=== PATIENT | female | born 1935 | race Caucasian/White ===

== ENCOUNTER 2016-09-29 16:05 | Inpatient (IN) | payer OTHER, MEDICARE ==
[~2016-09-29] VITALS: Ht 162.6 cm; Wt 63.5 kg
[~2016-09-29 16:05] MED LIST: ADVAIR DISKUS 21 DSK INH; ASPIRIN81 M1 PO; ATIVAN0.5 MG PO; HYDROXYCHLOROQ200 MG PO; MOBIC15 MG PO; NEURONTIN300 MG PO; NORCO 325 MG-51 TAB PO; NORFLEX100 MG PO; OMEPRAZOLE D/R20 MG PO; PREDNISONE5 MG PO
--- NOTE | 2016-09-29 16:11 | ED AMS/SEIZURE/WEAK/DIZZY ---
History of Present Illness General Chief Complaint: General Adult Stated Complaint: BIBA, GENERAL WEAKNESS Vital Signs & Intake/Output Vital Signs & Intake/Output Vital Signs Date Time Temp Pulse Resp B/P Pulse O2 O2 Flow FiO2 Ox Delivery Rate 09/29 1607 99.0 80 19 148/70 94 Room Air Allergies Coded Allergies: NO KNOWN ALLERGIES (05/20/15) Reconcile Medications Acetaminophen/Hydrocodone Bi (Coleridge 325 MG-5 MG) 1 TAB TAB 1 TAB PO Q6P PRN NECK PAIN Aspirin 81 MG CTB 1 TAB PO DAILY HEART HEALTH (Reported) FLUTICASONE/SALMETEROL (Advair 250-50 Diskus) 1 DSK DSK 1 PUFF INH BID BREATHING PROBLEMS (Reported) Gabapentin (Neurontin) 300 MG CAP 1 CAP PO PRN PAIN (Reported) Hydroxychloroquine Sulfate 200 MG TAB 1 TAB PO BID UNKNOWN (Reported) Lorazepam (Ativan) 0.5 MG TAB 1 TAB PO BID ANXIETY (Reported) Meloxicam (Mobic) 15 MG TAB 1 TAB PO DAILY PRN NECK PAIN Omeprazole 20 MG ECC 1 CAP PO DAILY GI (Reported) Orphenadrine Citrate (Norflex) [address] 1 TAB PO BID PRN NECK SPASMS Prednisone 5 MG TAB 2 TAB PO DAILY STEROID (Reported) Past History Travel History Traveled to [place] past 21 day No Medical History Respiratory: asthma Gastrointestinal: diverticulitis, GERD Musculoskeletal: osteoarthritis, rheumatoid arthritis Psychiatric: anxiety, depression Cancer(s): SKIN CANCER History of MRSA: No History of VRE: No History of CDIFF: Yes Surgical History Surgical History: appendectomy, knee replacement Psychosocial History Who do you live with Patient/Self Services at Home None What is your primary language Thai Progress Plan of Care: Orders Procedure Date/time Status LACTIC ACID 09/29 1928 Active LACTIC ACID 09/29 1628 Active XRY-ANKLE 3 OR MORE VIEWS R 09/29 1616 Active Add-on Test (ER Only) 09/29 1616 Active XRY-CHEST XRAY, PA AND LATERAL 09/29 1610 Active Saline Lock 09/29 1610 Active Telemetry/Features Reporter 09/29 161 Active RAPID VIRAL INFLUENZA A 09/29 1610 Active BLOOD CULTURE 09/29 1610 Active URIC ACID 09/29 1610 Active URINALYSIS 09/29 1610 Active TROPONIN LEVEL 09/29 1610 Active WESTERGREN SED RATE 09/29 1610 Active COMPREHENSIVE METABOLIC PANEL 09/29 1609 Active CBC WITHOUT DIFFERENTIAL 09/29 1609 Active EKG 09/29 161 Active Microbiology 09/29 161 NASOPHARYN: Influenza Virus A & B Rapid Smear - ORD 09/29 1609 BLOOD: Blood Culture - ORD 09/29 1609 BLOOD: Blood Culture - ORD Departure Departure Condition: Stable Referrals: ROSE MCKEON,LEIGHTON Brooks (PCP/Family) Departure Forms: Customer Survey General Discharge Information
--- NOTE | 2016-09-29 16:21 | ED AMS/SEIZURE/WEAK/DIZZY ---
History of Present Illness General Chief Complaint: General Adult Stated Complaint: BIBA, GENERAL WEAKNESS Source: patient, family Exam Limitations: no limitations Vital Signs & Intake/Output Vital Signs & Intake/Output Vital Signs Date Time Temp Pulse Resp B/P Pulse O2 O2 Flow FiO2 Ox Delivery Rate 09/30 2111 94 Room Air 09/29 2048 98.7 72 18 134/68 93 09/29 1742 98.7 64 18 131/67 100 Room Air 09/29 1648 95 Room Air 09/29 1607 99.0 80 19 148/70 94 Room Air Allergies Coded Allergies: lactase (LACTOSE INTOLERANT 09/29/16) Reconcile Medications Albuterol Sulfate (Proair Hfa) 90 MCG HFA.AER.AD 2 PUF INH PRN ASTHMA ( Reported) Benzonatate 100 MG CAPSULE 1 CAP PO TID PRN COUGH (Reported) Bifidobacterium Infantis (Align) (Unknown Strength) TAB.CHEW 1 TAB PO DAILY SUPPLEMENT (Reported) Cholecalciferol (Vitamin D3) (Vitamin D) (Unknown Strength) TABLET (Unknown Dose) PO DAILY SUPPLEMENT (Reported) Codeine Phosphate/Guaifenesi (Cheratussin AC Syrup) 10 MG-100 MG/5 ML LIQUID 5 ML PO QHS COUGH (Reported) Diclofenac Epolamine (Flector) 1.3 % PATCH.TD12 1 PAT TOP BID PRN PAIN ( Reported) Fluticasone/Salmeterol (Advair 250-50 Diskus) 250 MCG-50 MCG/DOSE BLST.W.DEV 1 PUF INH BID ASTHMA (Reported) Folic Acid 1 MG TABLET 1 TAB PO DAILY SUPPLEMENT (Reported) Gabapentin 300 MG CAPSULE 1 CAP PO PRN NERVE PAIN (Reported) Lorazepam (Ativan) 0.5 MG TABLET 1 TAB PO QAM ANXIETY (Reported) Magnesium Oxide (Magnesium) 400 MG TABLET 1 TAB PO PRN SUPPLEMENT (Reported) Methotrexate 2.5 MG TABLET 6 TAB PO QTHURS RA (Reported) Multivit-Min/FA/Lycopen/Lutein (Centrum Silver Tablet) 0.4 MG-300 MCG-250 MCG TABLET 1 TAB PO DAILY SUPPLEMENT (Reported) Prednisone 5 MG TABLET 1 TAB PO QAM RA (Reported) Ranitidine (Ranitidine HCl) 150 MG TABLET 1 TAB PO BID GI (Reported) Triage Nurses Notes Reviewed? yes HPI: 80-year-old female arrived by ambulance to room 5 for evaluation of general weakness that has been getting worse over the past few weeks. She was seen by her primary care provider and was given a Z-Tony for possible bronchitis. She reports she continues with a cough and congestion along with the general weakness. She has chills but no documented fever. She denies chest pain, abdominal pain, lightheadedness, dizziness, or palpitations. He reports that over the past few days she has been complaining of right ankle pain that has been getting worse along with swelling and redness. She has a history of gout and spoke to Dr. Knight who recommended her to come to the emergency department for evaluation. This morning she fell due to the weakness in the ankle pain. She reports she fell onto her right side but did not hit hard. She did hit her head but against a plastic cabinet. She denies any LOC and remembers the event. She denies no change in her chronic arthritic pain that she has. She has a history of RA and gout. She is unable to ambulate at home and she lives alone which is an issue for her. (COMFORT GARCIA APRN) Past History Travel History Traveled to [place] past 21 day No Medical History Any Pertinent Medical History? see below for history Respiratory: asthma Gastrointestinal: diverticulitis, GERD Musculoskeletal: osteoarthritis, rheumatoid arthritis Psychiatric: anxiety, depression Cancer(s): SKIN CANCER History of MRSA: No History of VRE: No History of CDIFF: Yes Surgical History Surgical History: appendectomy, knee replacement Psychosocial History Who do you live with Patient/Self Services at Home None What is your primary language [place] Citizen Tobacco Use: Never used ETOH Use: denies use Illicit Drug Use: denies illicit drug use Family History Hx Contributory? No (COMFORT GARCIA APRN) Review of Systems Review of Systems Constitutional: Reports: chills, weakness. EENTM: Reports: no symptoms. Respiratory: Reports: cough. Cardiovascular: Reports: no symptoms. GI: Reports: no symptoms. Genitourinary: Reports: no symptoms. Musculoskeletal: Reports: see HPI, joint pain. Skin: Reports: no symptoms. Neurological/Psychological: Reports: no symptoms. Hematologic/Endocrine: Reports: no symptoms. Immunologic/Allergic: Reports: no symptoms. (COMFORT GARCIA APRN) Physical Exam Physical Exam General Appearance: alert, awake, mild distress Head: atraumatic, normal appearance Eyes: Bilateral: normal appearance, PERRL, EOMI. Ears, Nose, Throat: normal pharynx, normal ENT inspection Neck: normal inspection, supple, full range of motion Respiratory: normal breath sounds, chest non-tender, no respiratory distress Cardiovascular: regular rate/rhythm Peripheral Pulses: 2+ radial (R), 2+ radial (L) Gastrointestinal: normal bowel sounds, soft, non-tender Back: normal inspection, normal range of motion Extremities: right ankle pain, erythema and edema Neurologic/Psych: no motor/sensory deficits, awake, alert, oriented x 3, normal mood/affect Skin: intact, normal color, warm/dry Comments: Unable to use a walker here in the emergency department. She is nonweightbearing on her right ankle. She had to transfer from bed to commode. Core Measures ACS in differential dx? No CVA/TIA Diagnosis: No Severe Sepsis Present: No Septic Shock Present: No (COMFORT GARCIA APRN) Progress Differential Diagnosis: anemia, dehydration, electrolyte imbalance, pneumonia, sepsis, septic arthritis, gout Plan of Care: Orders Procedure Date/time Status Regular Diet 09/30 B Active Code Status 09/29 2116 Active TRC EVALUATION (GEN) 09/30 2051 Active OXYGEN SETUP (GEN) 09/30 2051 Active Pathway - chart 09/30 2051 Active House Staff 09/30 2051 Active Patient Data 09/30 2051 Active Patient Data 09/29 2042 Active OXYGEN SETUP (GEN) 09/29 2024 Active Saline Lock 09/29 2024 Active Admit to inpatient 09/29 2024 Active Vital Signs 09/29 2024 Active Activity/Ambulation 09/29 2024 Active Code Status 09/29 2024 Complete LACTIC ACID 09/29 1628 Complete Add-on Test (ER Only) 09/29 161 Active Saline Lock 09/29 1610 Active Telemetry/Landmen 09/29 1610 Active RAPID VIRAL INFLUENZA A 09/29 1610 Complete BLOOD CULTURE 09/29 1610 Active URIC ACID 09/29 1610 Complete URINALYSIS 09/29 1610 Complete TROPONIN LEVEL 09/29 1610 Complete WESTERGREN SED RATE 09/29 1610 Complete COMPREHENSIVE METABOLIC PANEL 09/29 1610 Complete CBC WITHOUT DIFFERENTIAL 09/29 1610 Complete EKG 09/29 1610 Active VTE Mechanical Prophylaxis 09/29 UNK Active Vital Signs 09/29 UNK Active MISTAKE 09/29 UNK Active Intake & Output 09/29 UNK Active Current Medications Sig/Magnus Start time Last Medication Dose Stop Time Status Admin Folic Acid 1 MG DAILY 09/30 1000 UNVr (Folic Acid) Lorazepam 0.5 MG QAM 09/30 1000 UNVr (Ativan) 10/07 0959 Prednisone 5 MG DAILY 09/30 1000 UNVr Famotidine 20 MG BID 09/29 2199 UNVr (Pepcid) Gabapentin 300 MG DAILY PRN 09/29 2129 UNVr (Neurontin) Laboratory Tests 09/29/16 1928: Lactic Acid Cancelled 09/29/16 1859: Urine Color YEL, Urine Clarity CLEAR, Urine pH 6.0, Ur Specific Mize 1.015, Urine Protein NEG, Urine Ketones NEG, Urine Nitrite NEG, Urine Bilirubin NEG, Urine Urobilinogen 0.2, Ur Leukocyte Esterase NEG, Ur Microscopic EXAM NOT REQUIRED, Urine Hemoglobin NEG, Urine Glucose NEG 09/29/16 163: Lactic Acid 0.9 09/29/16 163: Anion Gap 13, Estimated GFR > 60, BUN/Creatinine Ratio 16.7, Glucose 115 H, Uric Acid 4.5, Calcium 10.1, Total Bilirubin 0.7, AST 27, ALT 37, Alkaline Phosphatase 71, Troponin I < 0.01, Total Protein 7.0, Albumin 4.0, Globulin 3.0, Albumin/Globulin Ratio 1.3, CBC w Diff NO MAN DIFF REQ, RBC 4.26, MCV 92.8, MCH 31.1 H, RDW 15.4 H, MPV 9.4, Gran % 85.8 H, Lymphocytes % 4.8 L, Monocytes % 9.0, Eosinophils % 0.4, Basophils % 0 L, Absolute Granulocytes 12.1 H, Absolute Lymphocytes 0.7 L, Absolute Monocytes 1.3 H, Absolute Eosinophils 0.1 , Absolute Basophils 0, PUBS MCHC 33.5, ESR Westergren 43 H Microbiology 09/29 1629 NASOPHARYN: Influenza Virus A & B Rapid Smear - COMP 09/29 1629 BLOOD: Blood Culture - RECD 09/29 1629 BLOOD: Blood Culture - RECD Diagnostic Imaging: Viewed by Me: Radiology Read. Discussed w/RAD: Radiology Read. CXR Impression: no acute abnormality, no infiltrates, normal size heart, normal mediastinum Initial ED EKG: NSR Prior EKG: unchanged Comments: PATIENT: SRINIVASAN WAYNE PRESENT AGE: 80 PATIENT ACCOUNT NO: [id number] : 35 LOCATION: [facility] [place] ORDERING PHYSICIAN: COMFORT GARCIA APRN SERVICE DATE: 09/29/16 EXAM TYPE: RAD - XRY-ANKLE 3 OR MORE VIEWS R; XRY-CHEST XRAY, PA AND LATERAL EXAMINATION: XR ANKLE, RIGHT XR CHEST CLINICAL INFORMATION: Weakness, cough. History of fall, complaining of right ankle pain. History of gout. COMPARISON: None TECHNIQUE: AP, lateral, and mortise views of the right ankle. 2 views of the chest. FINDINGS: RIGHT ANKLE: Significant periarticular soft tissue swelling is present. Moderate diffuse osteopenia is noted involving all the visualized bones. The bony alignment is intact. The cortices are intact. Incidental note is made of moderate degenerative osteoarthrosis at the intertarsal joints seen best on the lateral projection along the dorsal surface. Small posterior plantar calcaneal spur is noted. Os trigonum is seen. Soft tissue calcification is noted along the plantar surface underneath the calcaneus. CHEST: Both lung hall are symmetrically expanded and appear clear. The cardiomediastinal silhouette is within normal limits. There is no pleural effusion present. Cervical spine fusion is noted. Increased midthoracic kyphosis, mild multilevel degenerative spondylosis-related changes are noted. IMPRESSION: 1. Moderate diffuse osteopenia, and significant periarticular soft tissue swelling at the right ankle. 2. No radiographic evidence of any acute fracture and/or dislocation is present. 3. No acute cardiopulmonary disease. DICTATED BY: BRYAN MCKENNA MD DATE/TIME DICTATED:09/29/161735 AUTO PHONE INSTALLER:BINH DATE/TIME TRANSCRIBED:09/29/161735 CONFIDENTIAL, DO NOT COPY WITHOUT APPROPRIATE AUTHORIZATION. <Electronically signed in Other Vendor System> SIGNED BY: BRYAN MCKENNA MD 09/29/16 1747 8:02 PM patient continues with pain despite Tylenol use. Morphine will be given. I spoke with Dr. Mott over the telephone and this is less likely septic arthritis. Have a call out to Dr. Knight for additional information. More likely gout. 8:30 PM I spoke to Dr. Knight and we will admit her to general medicine under the hospitalist service and he will consult in the morning. If there is a need for a full orthopedic consultation he will advised tomorrow. I explained to him that the patient is nonweightbearing and unable to walk with a walker. Tried again to get out of bed but she is in severe pain. Dr. Knight advised to give her prednisone 10 mg times one now and 5 mg twice a day starting tomorrow. (COMFORT GARCIA APRN) Departure Departure Time of Disposition: 2025 Disposition: STILL A PATIENT Condition: Stable Clinical Impression Primary Impression: Gout attack Qualifiers: Gout site: ankle Gout etiology: unspecified cause Laterality: right Qualified Code: M10.9 - Gout, unspecified Referrals: ROSE MCKEON,LEIGHTON Brooks (PCP/Family) Departure Forms: Customer Survey General Discharge Information Admission Note Spoke With: PAN BARRAZA MD Documentation of Exam: Documentation of any treatments & extenuating circumstances including Concerns Regarding Discharge (functional status, medication knowledge or non-compliance, living conditions, etc.) that warrant an admission rather than observation: She will need full admission to general medicine for pain management, physical therapy consultation, case management consultation, rheumatology consultation, and orthopedic consultation. She will need steroids and pain medication. She is unable to bear weight in the emergency department please see nursing notes and my previous note. (COMFORT GARCIA APRN) PA/[employer] SALES REPRESENTATIVE Co-Sign Statement Statement: ED Attending supervision documentation- x I saw and evaluated the patient. I have also reviewed all the pertinent lab results and diagnostic results. I agree with the findings and the plan of care as documented in the PA's/[employer] SALES REPRESENTATIVE's documentation. [] I have reviewed the ED Record and agree with the PA's/[employer] SALES REPRESENTATIVE's documentation. [] Additions or exceptions (if any) to the PAs/[employer] SALES REPRESENTATIVE's note and plan are summarized below: [] (ANITA SEPULVEDA,SUSY)
[2016-09-29 16:56] LABS: ABSOLUTE BASOPHIL COUNT 0 /CUMM (0.0-0.2); ABSOLUTE EOSINOPHIL COUNT 0.1 /CUMM (0.0-0.7); ABSOLUTE GRANULOCYTE CT 12.1 /CUMM (1.4-6.5); ABSOLUTE LYMPH COUNT 0.7 /CUMM (1.2-3.4); ABSOLUTE MONOCYTE COUNT 1.3 /CUMM (0.10-0.60); BASOPHIL % 0 % (0.0-2.0); EOSINOPHIL % 0.4 % (0-5); HEMATOCRIT 39.5 % (37-47); MEAN CORPUSCULAR HGB 31.1 PG (27.0-31.0); MEAN CORPUSCULAR HGB CONC 33.5 G/DL (33.0-37.0); MEAN CORPUSCULAR VOLUME 92.8 FL (81.0-99.0); MEAN PLATELET VOLUME 9.4 FL (7.4-10.4); PLATELET COUNT 297 /CUMM (130-400); RBC DISTRIBUTION WIDTH 15.4 % (11.5-14.5); RED BLOOD CELL CT 4.26 /CUMM (4.20-5.40); WHITE BLOOD CELL COUNT 14.1 /CUMM (4.8-10.8)
[2016-09-29] MEDS ORDERED: FLECTOR1 EACH TOP (17:00)
[2016-09-29] MEDS ORDERED: PREDNISONE5 M1 PO (17:00)
[2016-09-29] MEDS ORDERED: CHERATUSSIN AC118 M1 PO (17:00)
[2016-09-29] MEDS ORDERED: RANITIDINE HCL150 MG PO (17:00)
[2016-09-29] MEDS ORDERED: ALIGN10.5 MG PO (17:01)
[2016-09-29] MEDS ORDERED: CENTRUM SILVER1 EAC3 PO (17:01)
[2016-09-29] MEDS ORDERED: VITAMIN D2000 UNI1 PO (17:01)
[2016-09-29] MEDS ORDERED: PROAIR HFA8.5 GM INH (17:02)
[2016-09-29] MEDS ORDERED: ADVAIR 250-501 EACH INH (17:02)
[2016-09-29] MEDS ORDERED: ATIVAN0.5 M1 PO (17:02)
[2016-09-29] MEDS ORDERED: FOLIC ACID1 M1 PO (17:03)
[2016-09-29] MEDS ORDERED: METHOTREXATE2.5 M2 PO (17:03)
[2016-09-29] MEDS ORDERED: GABAPENTIN300 M2 PO (17:04)
[2016-09-29] MEDS ORDERED: MAGNESIUM400 MG PO (17:04)
[2016-09-29] MEDS ORDERED: BENZONATATE100 M1 PO (17:05)
[2016-09-29 17:10] LABS: GRANULOCYTE % 85.8 % (42.2-75.2)
--- NOTE | 2016-09-29 17:47 | RADIOLOGY REPORT ---
EXAMINATION: XR ANKLE, RIGHT XR CHEST CLINICAL INFORMATION: Weakness, cough. History of fall, complaining of right ankle pain. History of gout. COMPARISON: None TECHNIQUE: AP, lateral, and mortise views of the right ankle. 2 views of the chest. FINDINGS: RIGHT ANKLE: Significant periarticular soft tissue swelling is present. Moderate diffuse osteopenia is noted involving all the visualized bones. The bony alignment is intact. The cortices are intact. Incidental note is made of moderate degenerative osteoarthrosis at the intertarsal joints seen best on the lateral projection along the dorsal surface. Small posterior plantar calcaneal spur is noted. Os trigonum is seen. Soft tissue calcification is noted along the plantar surface underneath the calcaneus. CHEST: Both lung hall are symmetrically expanded and appear clear. The cardiomediastinal silhouette is within normal limits. There is no pleural effusion present. Cervical spine fusion is noted. Increased midthoracic kyphosis, mild multilevel degenerative spondylosis-related changes are noted. IMPRESSION: 1. Moderate diffuse osteopenia, and significant periarticular soft tissue swelling at the right ankle. 2. No radiographic evidence of any acute fracture and/or dislocation is present. 3. No acute cardiopulmonary disease.
--- NOTE | 2016-09-29 22:12 | History & Physical ---
ZOË LEIGH 09/29/16 2211: General Information and HPI MD Statement: I have seen and personally examined SRINIVASAN WAYNE and documented this H&P. The patient is a 80 year old F who presented with a patient stated chief complaint of right ankle pain and swelling. Source of Information: patient, family, old records Exam Limitations: no limitations History of Present Illness: This is a 80-year-old female with past medical history significant for asthma, diverticulitis, GERD, osteoarthritis, rheumatoid arthritis on methotrexate, history of gout on prednisone 5 mg, anxiety, depression, skin cancer, knee replacement, appendicectomy, acute bronchitis, narrow pain presented to emergency department this morning chief complaint of right ankle pain and swelling for 3 days. According to the patient she has cough, chest congestion, difficulty breathing, dark green colored sputum production for few weeks. She went to her primary care doctor and she received Z-Tony for acute bronchitis and cough suppressants. Denied any fever and chills at that time. However she has been having generalized weakness for a few weeks. Patient also has history of gout for 2 years. She was following Dr. Knight veterans employment representative as an outpatient. She is on prednisone 5 mg daily. She has a history of gout flareup a few months ago for which she received a cortisone shot. She was never admitted to the hospital for gout flareup. Patient reported right ankle redness and swelling for past [address] Knight office and she was advised to take prednisone 10 mg and come to the office. She is supposed to go to Dr. Knight office coming Saturday. However her ankle swelling and pain has worsened. Ankle pain associated with swelling at lateral malleolus and medial malleolus extending to calf. Pain is 5 out of 10 associated with limited range of movement. Because of severe pain and generalized weakness she fell this morning and hit her head onto the plastic cabinet. However she denied any loss of consciousness. She remembers the whole event. She felt little dizzy before the event. Denies any headache, weakness or sensory changes, numbness or tingling sensation. Patient denies any fever, chills, headache, difficulty breathing, chest pain, racing of heart. However she has ongoing cough and yellow sputum production for a few weeks. She completed her antibiotics. Denies any abdominal pain, nausea, vomiting, diarrhea, constipation, change in bladder or bowel habits. Denies smoking, alcohol abuse, illicit drug abuse. Patient has history of rheumatoid arthritis for which she is on methotrexate 2.5 mg tablet. She takes 6 pills in a week 3 in the morning and 3 at night. Allergies/Medications Allergies: Coded Allergies: lactase (LACTOSE INTOLERANT 09/29/16) Home Med list Albuterol Sulfate (Proair Hfa) 90 MCG HFA.AER.AD 2 PUF INH PRN ASTHMA ( Reported) Benzonatate 100 MG CAPSULE 1 CAP PO TID PRN COUGH (Reported) Bifidobacterium Infantis (Align) (Unknown Strength) TAB.CHEW 1 TAB PO DAILY SUPPLEMENT (Reported) Cholecalciferol (Vitamin D3) (Vitamin D) (Unknown Strength) TABLET (Unknown Dose) PO DAILY SUPPLEMENT (Reported) Codeine Phosphate/Guaifenesi (Cheratussin AC Syrup) 10 MG-100 MG/5 ML LIQUID 5 ML PO QHS COUGH (Reported) Diclofenac Epolamine (Flector) 1.3 % PATCH.TD12 1 PAT TOP BID PRN PAIN ( Reported) Fluticasone/Salmeterol (Advair 250-50 Diskus) 250 MCG-50 MCG/DOSE BLST.W.DEV 1 PUF INH BID ASTHMA (Reported) Folic Acid 1 MG TABLET 1 TAB PO DAILY SUPPLEMENT (Reported) Gabapentin 300 MG CAPSULE 1 CAP PO PRN NERVE PAIN (Reported) Lorazepam (Ativan) 0.5 MG TABLET 1 TAB PO QAM ANXIETY (Reported) Magnesium Oxide (Magnesium) 400 MG TABLET 1 TAB PO PRN SUPPLEMENT (Reported) Methotrexate 2.5 MG TABLET 6 TAB PO QTHURS RA (Reported) Multivit-Min/FA/Lycopen/Lutein (Centrum Silver Tablet) 0.4 MG-300 MCG-250 MCG TABLET 1 TAB PO DAILY SUPPLEMENT (Reported) Prednisone 5 MG TABLET 1 TAB PO QAM RA (Reported) Ranitidine (Ranitidine HCl) 150 MG TABLET 1 TAB PO BID GI (Reported) Compliance With Home Meds: GOOD Past History Travel History Traveled to [place] past 21 day No Medical History Neurological: NONE EENT: NONE Cardiovascular: NONE Respiratory: asthma Gastrointestinal: diverticulitis, GERD Hepatic: NONE Renal: NONE Musculoskeletal: osteoarthritis, rheumatoid arthritis Psychiatric: anxiety, depression Endocrine: GOUT Blood Disorders: NONE Cancer(s): SKIN CANCER History of MRSA: No History of VRE: No History of CDIFF: Yes Surgical History Surgical History: appendectomy, knee replacement Past Family/Social History Psychosocial History Services at Home: None Smoking Status: Never Smoked ETOH Use: denies use Illicit Drug Use: denies illicit drug use Review of Systems Review of Systems Constitutional: Reports: chills, weakness. Denies: diaphoresis, fever, malaise, unexplained weight loss. EENTM: Denies: visual changes, hearing changes, nasal pain, throat pain. Cardiovascular: Denies: chest pain, edema, orthopena, palpitations, peripheral edema, syncope. Respiratory: Reports: cough, sputum production. Denies: hemoptysis, orthopnea, short of breath, stridor, wheezing. GI: Denies: abdominal pain, constipation, diarrhea, nausea, vomiting. Genitourinary: Denies: frequency, nocturia, urgency. Musculoskeletal: Reports: gout, joint pain, joint swelling. Denies: back pain, neck pain. Skin: Reports: erythema. Neurological/Psychological: Denies: anxiety, ataxia, confusion, depressed, dementia, headache, numbness, tingling, tremors, unable to move lower ext, unable to move upper ext, weakness. Exam & Diagnostic Data Last 24 Hrs of Vital Signs/I&O Vital Signs Date Time Temp Pulse Resp B/P Pulse O2 O2 Flow FiO2 Ox Delivery Rate 09/30 0000 Room Air 09/29 2346 98.6 67 20 124/78 94 Room Air 09/29 2112 94 Room Air 09/29 2049 98.7 72 18 134/68 93 09/29 1742 98.7 64 18 131/67 100 Room Air 09/29 1648 95 Room Air 09/29 1607 99.0 80 19 148/70 94 Room Air Intake & Output 09/30 0800 09/30 0000 09/29 1600 Intake Total 10 Output Total 600 Balance -590 Intake, IV 10 Output, Urine 600 Patient 63.503 kg Weight Physical Exam General Appearance Alert, Oriented X3, Cooperative, No Acute Distress Skin No Rashes, No Breakdown HEENT Atraumatic, PERRLA, EOMI, Mucous Membr. moist/pink Neck Supple, No JVD, No thryomegaly Lymphatic Axillary nl, Cervical nl Cardiovascular Regular Rate, Normal S1, Normal S2, No Murmurs Lungs Clear to Auscultation, Normal Air Movement Abdomen Normal Bowel Sounds, Soft, No Tenderness, No Hepatospenomegaly Neurological Normal Speech, Strength at 5/5 X4 Ext, Normal Tone, Sensation Intact, Cranial Nerves 3-12 NL, Reflexes 2+ Extremities No Clubbing, No Cyanosis, swelling right and left malleolus, erythema nad tenderness. ;limited rom. Vascular Normal Pulses, Pulses Symmetrical Last 24 Hrs of Labs/Venancio: Laboratory Tests 09/29/16 1928: Lactic Acid Cancelled 09/29/16 1859: Urine Color YEL, Urine Clarity CLEAR, Urine pH 6.0, Ur Specific [place] 1.015, Urine Protein NEG, Urine Ketones NEG, Urine Nitrite NEG, Urine Bilirubin NEG, Urine Urobilinogen 0.2, Ur Leukocyte Esterase NEG, Ur Microscopic EXAM NOT REQUIRED, Urine Hemoglobin NEG, Urine Glucose NEG 09/29/161629: Lactic Acid 0.9 09/29/16 163: Anion Gap 13, Estimated GFR > 60, BUN/Creatinine Ratio 16.7, Glucose 115 H, Uric Acid 4.5, Calcium 10.1, Total Bilirubin 0.7, AST 27, ALT 37, Alkaline Phosphatase 71, Troponin I < 0.01, C-Reactive Prot, Quant Pending, Total Protein 7.0, Albumin 4.0, Globulin 3.0, Albumin/Globulin Ratio 1.3, CBC w Diff NO MAN DIFF REQ, RBC 4.26, MCV 92.8, MCH 31.1 H, RDW 15.4 H, MPV 9.4, Gran % 85.8 H, Lymphocytes % 4.8 L, Monocytes % 9.0, Eosinophils % 0.4, Basophils % 0 L, Absolute Granulocytes 12.1 H, Absolute Lymphocytes 0.7 L, Absolute Monocytes 1.3 H, Absolute Eosinophils 0.1, Absolute Basophils 0, PUBS MCHC 33.5, ESR Westergren 43 H Microbiology 09/29 1629 NASOPHARYN: Influenza Virus A & B Rapid Smear - COMP 09/29 1629 BLOOD: Blood Culture - RECD 09/29 1629 BLOOD: Blood Culture - RECD Diagnostic Data EKG Results Normal sinus rhythm, rate 69, QTC 395, no acute ST-T wave changes. CXR Results Chest x-ray was normal. Assessment/Plan Assessment: This is a 80-year-old female with past medical history significant for asthma, diverticulitis, GERD, osteoarthritis, rheumatoid arthritis on methotrexate, history of gout on prednisone 5 mg, anxiety, depression, skin cancer, knee replacement, appendicectomy, acute bronchitis, narrow pain presented to emergency department this morning chief complaint of right ankle pain and swelling for 3 days. Admitted for acute gout attack. Vital signs on admission-afebrile, heart rate 80, respiratory rate 19, blood pressure 128/70, saturating at 94% on room air. Pertinent labs on admission: Leukocytosis to 14.1, BEP unremarkable, troponin negative, alkaline phosphatase 71. UA unremarkable. Pertinent imaging on admission: right ankle x-ray: 1. Moderate diffuse osteopenia, and significant periarticular soft tissue swelling at the right ankle. 2. No radiographic evidence of any acute fracture and/or dislocation is present. Chest x-ray negative. Rib x-ray: No left-sided rib fractures identified. Problem list 1. Acute gout attack 2. Right calf tenderness 3. Status post mechanical fall 4. Neuropathy 5. Bronchitis 6. Asthma 7. GERD 8. Rheumatoid arthritis 9. Osteoarthritis 10. Anxiety Acute gout attack Patient has history of gout for 2 years. She is on prednisone 5 mg daily. She follows Dr. Knight veterans employment representative as an outpatient. History of gout flareup a few months ago, treated with cortisone shot. No previous admissions for acute gout. Leukocytosis on admission. ESR elevated to 43. right ankle x-ray: 1. Moderate diffuse osteopenia, and significant periarticular soft tissue swelling at the right ankle. 2. No radiographic evidence of any acute fracture and/or dislocation is present. * Admitted to general med floor for further management of acute gout * Monitor vitals closely * Monitor for fevers, chills, worsening pain or swelling of the joint * Monitor for septic arthritis * Monitor WBC in the morning. 14.1 on admission * Dr. Knight was contacted * Advised to start patient on prednisone 5 mg twice a day instead of once a day * We'll consult orthopedic * IV hydration * Pain management with Tylenol, Percocet when necessary * Bowel regimen to avoid constipation * PT evaluation * Serum uric acid Status post mechanical fall Because of severe ankle pain and generalized weakness she fell this morning and hit her head onto the plastic cabinet. However she denied any loss of consciousness. She remembers the whole event. She felt little dizzy before the event. Denies any headache, weakness or sensory changes, numbness or tingling sensation. * Bruise was noted on left lateral back * Rib x-ray ruled out fractures * CAT scan head negative * Fall precautions * Monitor closely Right calf tenderness Will order lower extremity Doppler to rule out DVT. Neuropathy Continue gabapentin Anxiety Continue Ativan GERD Continue famotidine Ranitidine not available in our pharmacy Rheumatoid arthritis Patient takes methotrexate every 2.5 mg tablet 3 pills in the morning and 3 pills at night every Continue prednisone Cough TRC Nebs Cough suppressants Continue vitamin D, folate, multivitamins DVT prophylaxis Full code Pain management with Tylenol and Percocet Regular diet As Ranked By This Provider Problem List: 1. Osteoarthritis 2. Asthma 3. Fall 4. Gout attack Qualifiers Gout site: ankle Gout etiology: unspecified cause Laterality: right Qualified Code: M10.9 - Gout, unspecified Core Measures/Miscellaneous Acute Coronary Syndrome ACS Diagnosis: No Cerebrovascular Accident CVA/TIA Diagnosis: No Congestive Heart Failure CHF Diagnosis: No Venous Thromboembolism VTE Risk Factors: Age > 40 No [facility] VTE prophylaxis d/t: No contraindications No VTE Pharm Prophylaxis d/t: No contraindications VTE Diagnosis: No VTE Type: NONE VTE Confirmed by (Test): NONE Severe Sepsis Severe Sepsis Present: No Septic Shock Septic Shock Present: No Miscellaneous Documentation Attending Case Discussed With: PAN BARRAZA MD Primary Care Physician: LEIGHTON HAN Patient sees these Specialists rheumatology Level of Patient Care: General Medicine ALENA KELSEY 09/29/16 2213: Resident Review Statement Resident Statement: examined this patient, discussed with global marketing intern, agreed with global marketing intern, reviewed EMR data (avail), discussed with nursing, reviewed images Other Findings: Chief complaint: Right ankle swelling and pain. This is an 80-year-old lady with past medical history significant for RA on methotrexate, gout on 5 mg prednisone daily, asthma, GERD, osteoarthritis, anxiety, who presented to the ED for right ankle swelling and pain for the past 4 days. According to the patient, she started developing swelling on her right ankle 4 days ago, she contacted her veterans employment representative, Dr. Knight, and was instructed to double the dose of her prednisone from 5-[address] Knight. The patient took 10 mg of prednisone but did not go to Dr. Knight's office. Since then lower extremity swelling and pain worsened so she presented to the ED. The patient also lost her balance because of leg pain fell today in her restroom;she hit her head and her back( left side) on a plastic cabinet. She denies loss of consciousness dizziness or any other symptoms at that time. Please see above for more details. VSS. Physical exam at the time of admission: AAO 3, mild distress HEENT: HNCAT , PERRLA, EOMI, moist mucous membranes, normal pharynx. Neck: Supple, no JVD, no carotid bruit, no lymphadenopathy. CV: RRR, no murmur. Abdomen: normal bowel sounds, soft, NT, ND. Back: No spinal tenderness, approximately 5 cm ecchymosis noted below T12 on the left side. Extremities: Swelling noted on lateral and medial malleolus. Erythema and tenderness noted around right ankle. Sensation and pulses intact, active range of motion limited in right ankle secondary to pain. Passive range of motion intact. Patient also has calf tenderness on the right side. Left lower extremity and upper extremities normal range of motion, sensation, and pulse. Neurology: Normal speech, cranial nerves III-12 intact, reflexes intact. Pertinent labs on admission: Leukocytosis to 14.1, BP unremarkable, troponin negative, alkaline phosphatase 71. UA unremarkable. Pertinent imaging on admission: right ankle x-ray: 1. Moderate diffuse osteopenia, and significant periarticular soft tissue swelling at the right ankle. 2. No radiographic evidence of any acute fracture and/or dislocation is present. Chest x-ray negative. Rib x-ray: No left-sided rib fractures identified. EKG: Sinus rhythm, rate 69, no ST-T wave abnormalities. Orthopedic service was contacted by the ED, they think this is less likely septic arthritis they did not recommend synovial fluid aspiration at this point. Problem list/plan: #Gout exacerbation: We contacted patient's veterans employment representative, Dr. Knight. He believes that given patient's given advanced age it would be better to use steroids as opposed to NSAIDs. He will come and see the patient tomorrow morning. Per his recommendation, will start the patient on prednisone 5 mg twice a day. Will place orthopedic consult for tomorrow morning. PT evaluation. Pain management with Tylenol and Percocet when necessary. Maintain the patient on bowel regimen while on Percocet to avoid constipation. #Right calf tenderness: Will order lower extremity Doppler to rule out DVT. #Status post mechanical fall this morning. No loss of consciousness, dizziness or other complaints. Will order head CT to rule out any pathology. #Will continue home medications including gabapentin, lorazepam, folic acid, ranitidine(converted to famotidine as this medication is not available in our pharmacy). #Patient takes her methotrexate every . If she remains in the hospital by next please order the medication. #DVT prophylaxis at all times. #Patient is full code. MADI SEPULVEDA, [facility] 09/30/16 0526: Attending MD Review Statement Attending Statement Attending MD Statement: examined this patient, discuss w/resident/PA/CONNIE SCRATCHER, agreed w/resident/PA/CONNIE SCRATCHER Attending Assessment/Plan: 80 yo F with h/o HTN, spinal stenosis, OA, RA on methotrexate, gout on prednisone, asthma, GERD, is here for evaluation of 4-day h/o right ankle pain and swelling with resultant gait instability, weakness and fall. She was advised by Dr. Knight to double her dose of prednisone with no relief, hence she came to the ER. She also notes, right calf swelling which is unusual for her and the pain radiates from the ankle joint to the calf. She has a h/o gout especially of right ankle, last exacerbation was few months ago for which she received intra- articular cortisone with relief in her symptoms. Of note, patient was recently treated for bronchitis with Zpak (1 week ago), has mild persistent cough without sputum production. VSS. Right ankle: diffuse swelling with limited ROM, erythema+, tenderness+. Calf tenderness right side+. Back: left sided bruise+ under 12th rib. Labs: WBC 14.1, trop neg. UA clear. EKG: SR. CT head neg. Ankle xray: diffuse osteopenia, periarticular soft tissue swelling at right ankle, no fracture or dislocation. CXR neg. No rib fracture. 1. Acute right ankle swelling likely 2/2 flare up of gout, although septic arthritis remains in the differential. Less likely cellulitis. GM admit, elevate RLE, check ESR, CRP and uric acid. Obtain RLE doppler to rule out DVT. Rheumatology consult Dr. Knight, increase prednisone to 5 mg BID and he plans to assess patient in AM. ?cortsione injection. No NSAIDs for now. Pain management. Ortho was consulted by ER, and they did not think it is septic arthritis. Dr. Knight to assess need for arthrocentesis in AM. PT eval and possible placement. 2. Leukocytosis likely steroid induced. DVT ppx Lovenox. Full code.
--- NOTE | 2016-09-29 22:33 | Admission Certification ---
Admission Certification Certification Statement - As attending physician, I certify that at the time of - admission, based on clinical presentation, severity of - symptoms, need for further diagnostic testing and - therapeutic interventions, and risk of adverse outcomes - without in-hospital treatment, in my clinical assessment, - this patient requires an acute hospital stay for a minimum - of two nights or longer. I have also considered psychsocial - factors such as support system, advanced age, financial - issues, cognitive issues, and failed out-patient treatments, - past re-admission history, safety of patient, and lack of - compliance as applicable. Specific rationale supporting this admission is: Right ankle swelling possibly gout vs. septic arthritis.
--- NOTE | 2016-09-29 23:37 | RADIOLOGY REPORT ---
EXAMINATION: XR RIBS, LEFT CLINICAL INFORMATION: Left rib fractures. Pain after fall. COMPARISON: Same day chest radiographs TECHNIQUE: Several views of the left ribs are provided. FINDINGS: Lungs are clear. No consolidation, pneumothorax, or pleural effusion. The cardiomediastinal silhouette and pulmonary vasculature are normal. Partially visualized is cervical spine fusion hardware within the lower cervical spine. Osseous structures are otherwise unremarkable. Ribs are intact. No fractures are identified. IMPRESSION: No left-sided rib fractures identified.
[2016-09-29 23:46] VITALS: BP 124/78
--- NOTE | 2016-09-30 00:41 | CT SCAN REPORT ---
EXAMINATION: CT HEAD WITHOUT CONTRAST CLINICAL INFORMATION: Pain after fall. COMPARISON: None. TECHNIQUE: Contiguous axial images of the brain were obtained without IV contrast. DLP: 601 mGy-cm. FINDINGS: There are no pathologic extra-axial fluid collections. The lateral, third fourth ventricles are mildly prominent, but age-appropriate and concordant with the appearance of the sulci. There is no evidence for acute intraparenchymal hemorrhage or infarct. There is mild periventricular low-attenuation present indicative of small vessel disease. There is neither mass nor mass effect. There is no shift of midline structures. The paranasal sinuses and mastoid air cells are clear. There are no osseous lesions. IMPRESSION: No evidence for acute intracranial injury. Age-appropriate appearance of the brain.
[2016-09-30 07:18] VITALS: BP 109/68
--- NOTE | 2016-09-30 08:47 | PN- Housestaff ---
KENYA SEPULVEDA,GRANT 09/30/16 0847: Subjective Follow-up For: Acute on chronic gout Subjective: Patient is seen and examined while seated on a recliner with feet elevated. She still endorses right-sided ankle swelling and pain at the lateral malleolus area. She however does not endorse any fever, chills, nausea, vomiting, chest pain, palpitation, increased shortness of breath or dizziness, abdominal pain or dysuria. No Acute overnight event reported by nursing staff. Review of Systems Constitutional: Reports: see HPI. Objective Last 24 Hrs of Vital Signs/I&O Vital Signs Date Time Temp Pulse Resp B/P Pulse O2 O2 Flow FiO2 Ox Delivery Rate 09/30 1044 Room Air Room Air 09/30 0718 98.2 66 20 109/68 95 Room Air 09/30 0000 Room Air 09/29 2346 98.6 67 20 124/78 94 Room Air 09/29 2112 94 Room Air 09/29 2049 98.7 72 18 134/68 93 09/29 1742 98.7 64 18 131/67 100 Room Air 09/29 1648 95 Room Air 09/29 1607 99.0 80 19 148/70 94 Room Air Intake & Output 09/30 1600 09/30 0800 09/30 0000 Intake Total 150 10 Output Total 351 500 600 Balance -351 -350 -590 Intake, IV 10 Intake, Oral 150 Number 0 Bowel Movements Output, Stool 1 Output, Urine 350 500 600 Patient 63.503 kg Weight Physical Exam General Appearance: Alert, Oriented X3, Cooperative Skin: mild erythema on lateral malleolus at right ankle Assessment/Plan Assessment: This is a 80-year-old female with a significant history of gout on prednisone with sent flareup incident about 2 months ago that required intra-articular hydrocortisone, osteo-and rheumatoid arthritis on methotrexate spinal stenosis, asthma, GERD is presenting with 4-day-old history of right ankle pain and swelling which is suggestive of an acute exacerbation of her gout. She pain and swelling was severe enough to cause gait instability which led to fall. Preliminary CT head findings at the ED was unremarkable for any acute bleeding and also did not present with any focal neurological deficits. Assessment and plan #Gout exacerbation: With monoarticular presentation and prominent pain and swelling the right lateral malleolus arae affecting weightbearing and gait. Looking at the WBC count and physical examination, this is highly unlikely to be septic arthritis. Dr Knight was contacted oh actively follows the patient and recommended that due to patient's age, to avoid NSAIDs and continue prednisone 5 mg twice a day. Will await further recommendation from Dr. Knight who will see the patient today. Continue with oxycodone and Tylenol for pain management. #Right calf tenderness: Doppler ultrasound ordered today to rule out DVT. #Status post mechanical fall this morning. No loss of consciousness, dizziness or other complaints. CT head ordered was unremarkable for any acute intracranial pathology/bleed. #Will continue home medications including gabapentin, lorazepam, folic acid, ranitidine(converted to famotidine as this medication is not available in our pharmacy). #Patient takes her methotrexate every . Highely unlikely the patient will still been hospital by next . Therefore no need to consider methotrexate while in the hospital. #DVT prophylaxis at all times. #Patient is full code. Problem List: 1. Gout attack Pain Ratin Pain Location: right ankle Pain Goal: Pain 4 or less Pain Plan: prednisone apap oxycodone Tomorrow's Labs & Rationales: RABIA Araujo MD 09/30/16 1410: Attending MD Review Statement Attending Statement Attending MD Statement: examined this patient, discuss w/resident/PA/DECAL APPLIER, agreed w/resident/PA/DECAL APPLIER, reviewed EMR data (avail) Attending Assessment/Plan: 80F PMH gout, RA on Methotrexate and chronic Prednisone admitted for acute gouty attack of right ankle with severe pain and swelling. Today pain is improved but still present and ankle is still exquisitely tender. She has no other complaints. There is no evidence of septic arthritis. Vitals stable, exam benign, labs reviewed. Plan - Continue on general medicine - Increase Prednisone to 15mg BID per rheumatology recommendations - Start Colchicine 0.6mg daily - Monitor renal function - Monitor glucose levels - Continue home medications - DVT PPx
--- NOTE | 2016-09-30 11:36 | Cons- Orthopedic ---
General Information and HPI Consulting Request Date of Consult: 09/30/16 Requested By: MADI SEPULVEDA,PAN Reason for Consult: Right ankle pain and swelling, concern for septic joint Source of Information: patient, old records History of Present Illness: 80yo female with a history of RA (on methotrexate) and gout (on prednisone 5mg daily) presents with pain, swelling, and erythema of right ankle. She was having difficulty weight bearing on the right foot due to pain, resulting in a fall yesterday. She hit her head but denies loss of consciousness. Her right ankle pain is improved this morning with medication and increasing her prednisone dose. She ambulated this morning with pain, but states it is better than yesterday. History of right ankle gout, which she says feels similar to her pain at this time, but also having new distal posterior calf/ankle pain. She is followed by Dr. Knight, who manages her prednisone and has provided steroid injections to the right rimma in the past. The patient is anticipating a visit from Dr. Knight this morning. History of right total knee arthroplasty but denies knee pain beyond baseline. Allergies/Medications Allergies: Coded Allergies: lactase (LACTOSE INTOLERANT 09/29/16) Home Med List: Albuterol Sulfate (Proair Hfa) 90 MCG HFA.AER.AD 2 PUF INH PRN ASTHMA ( Reported) Benzonatate 100 MG CAPSULE 1 CAP PO TID PRN COUGH (Reported) Bifidobacterium Infantis (Align) (Unknown Strength) TAB.CHEW 1 TAB PO DAILY SUPPLEMENT (Reported) Cholecalciferol (Vitamin D3) (Vitamin D) (Unknown Strength) TABLET (Unknown Dose) PO DAILY SUPPLEMENT (Reported) Codeine Phosphate/Guaifenesi (Cheratussin AC Syrup) 10 MG-100 MG/5 ML LIQUID 5 ML PO QHS COUGH (Reported) Diclofenac Epolamine (Flector) 1.3 % PATCH.TD12 1 PAT TOP BID PRN PAIN ( Reported) Fluticasone/Salmeterol (Advair 250-50 Diskus) 250 MCG-50 MCG/DOSE BLST.W.DEV 1 PUF INH BID ASTHMA (Reported) Folic Acid 1 MG TABLET 1 TAB PO DAILY SUPPLEMENT (Reported) Gabapentin 300 MG CAPSULE 1 CAP PO PRN NERVE PAIN (Reported) Lorazepam (Ativan) 0.5 MG TABLET 1 TAB PO QAM ANXIETY (Reported) Magnesium Oxide (Magnesium) 400 MG TABLET 1 TAB PO PRN SUPPLEMENT (Reported) Methotrexate 2.5 MG TABLET 6 TAB PO QTHURS RA (Reported) Multivit-Min/FA/Lycopen/Lutein (Centrum Silver Tablet) 0.4 MG-300 MCG-250 MCG TABLET 1 TAB PO DAILY SUPPLEMENT (Reported) Prednisone 5 MG TABLET 1 TAB PO QAM RA (Reported) Ranitidine (Ranitidine HCl) 150 MG TABLET 1 TAB PO BID GI (Reported) Past History Medical History Neurological: NONE EENT: NONE Cardiovascular: NONE Respiratory: asthma Gastrointestinal: diverticulitis, GERD Hepatic: NONE Renal: NONE Musculoskeletal: osteoarthritis, rheumatoid arthritis Psychiatric: anxiety, depression Endocrine: GOUT Blood Disorders: NONE Cancer(s): SKIN CANCER Surgical History Pertinent Surgical History: appendectomy, knee replacement Psychosocial History Services at Home: None Smoking Status: Never Smoked ETOH Use: denies use Illicit Drug Use: denies illicit drug use Exam & Diagnostic Data Vital Signs and I&O Vital Signs Date Time Temp Pulse Resp B/P Pulse O2 O2 Flow FiO2 Ox Delivery Rate 09/30 1044 Room Air Room Air 09/30 0718 98.2 66 20 109/68 95 Room Air 09/30 0000 Room Air 09/29 2346 98.6 67 20 124/78 94 Room Air 09/29 2112 94 Room Air 09/29 2049 98.7 72 18 134/68 93 09/29 1742 98.7 64 18 131/67 100 Room Air 09/29 1648 95 Room Air 09/29 1607 99.0 80 19 148/70 94 Room Air Intake & Output 09/30 1600 09/30 0800 09/30 0000 09/29 1600 09/30 0700 09/29 0000 Intake Total 150 10 Output Total 351 500 600 Balance -351 -350 -590 Intake, IV 10 Intake, Oral 150 Number 0 Bowel Movements Output, Stool 1 Output, Urine 350 500 600 Patient 140 lb Weight Physical Exam: Alert, oriented, sitting up in chair. RLE: Erythema and swelling over lateral and anterior ankle (per patient, improved from yesterday) Intact EHL/FHL, intact DF/PF with discomfort Tender to palpation over lateral and anterior ankle, tender over posterior Achilles tendon and distal calf. Achilles tendon in continuity Sensation intact to light touch over foot and ankle. Foot warm, well-perfused. Imaging Results: XR right ankle 09/28/2016: 1. Moderate diffuse osteopenia, and significant periarticular soft tissue swelling at the right ankle. 2. No radiographic evidence of any acute fracture and/or dislocation is present. Assessment/Plan Assessment/Plan 80yo F presents with right ankle pain, swelling, and erythema. History of RA on methotrexate and gout on daily prednisone. Per patient, she is feeling better today following adjustment of medication. Afebrile, WBC 14.1, ESR 43, CRP 4.8. 1. Continue treatment for gout per Dr. Knight' recommendations 2. Will continue to follow and re-evaluate for septic joint; low concern at this time given improvement in symptoms and overall exam, however will continue to monitor. 3. Defer to Dr. Knight for medical management of gout/RA. 4. Ultrasound to evaluate calf pain. Consult Acknowledgment - Thank you for your consult request. Attending MD Review Statement Attending Statement Attending MD Statement: examined this patient, reviewed images
--- NOTE | 2016-09-30 13:14 | Cons- Rheumatology ---
General Information and HPI Consulting Request Date of Consult: 09/30/16 Requested By: MADI SEPULVEDA,PAN Reason for Consult: Evaluate her painful swollen right ankle Source of Information: patient, family, old records Exam Limitations: no limitations History of Present Illness: This is an 80-year-old female Y treated for seronegative inflammatory arthritis, and chondrocalcinosis who was admitted to the hospital last evening with a painful swollen right ankle. Masses in rheumatologic consultation as I follow her regularly and have her on chronic medications including methotrexate and prednisone. Patient was in her usual state of health until approximately 2 days prior to admission when she experienced the relatively abrupt onset of pain and swelling of her right ankle. Should be noted that she has had throughout the years other episodes of acute painful swelling particularly of her right wrist and left ankle which I attributed to probable pseudogout. His also had chronic synovitis of her wrist and thus 5 label her as having seronegative rheumatoid arthritis since her rheumatoid factor SHANT and anti-CCP antibodies have been negative. His been on methotrexate since February 2016 she also has been taking prednisone 5 mg daily when last seen 2 months ago she had ongoing swelling of her right wrist and left shoulder which was injected with Depo-Medrol. The patient denies any trauma to the ankle although she did fall a few days ago there is no history of fever or chills. Admitting lab work to the hospital showed an elevated white count of 14,100 and an elevated sedimentation rate of 43. Previous sedimentation rates have been normal Allergies/Medications Allergies: Coded Allergies: lactase (LACTOSE INTOLERANT 09/29/16) Home Med List: Albuterol Sulfate (Proair Hfa) 90 MCG HFA.AER.AD 2 PUF INH PRN ASTHMA ( Reported) Benzonatate 100 MG CAPSULE 1 CAP PO TID PRN COUGH (Reported) Bifidobacterium Infantis (Align) (Unknown Strength) TAB.CHEW 1 TAB PO DAILY SUPPLEMENT (Reported) Cholecalciferol (Vitamin D3) (Vitamin D) (Unknown Strength) TABLET (Unknown Dose) PO DAILY SUPPLEMENT (Reported) Codeine Phosphate/Guaifenesi (Cheratussin AC Syrup) 10 MG-100 MG/5 ML LIQUID 5 ML PO QHS COUGH (Reported) Diclofenac Epolamine (Flector) 1.3 % PATCH.TD12 1 PAT TOP BID PRN PAIN ( Reported) Fluticasone/Salmeterol (Advair 250-50 Diskus) 250 MCG-50 MCG/DOSE BLST.W.DEV 1 PUF INH BID ASTHMA (Reported) Folic Acid 1 MG TABLET 1 TAB PO DAILY SUPPLEMENT (Reported) Gabapentin 300 MG CAPSULE 1 CAP PO PRN NERVE PAIN (Reported) Lorazepam (Ativan) 0.5 MG TABLET 1 TAB PO QAM ANXIETY (Reported) Magnesium Oxide (Magnesium) 400 MG TABLET 1 TAB PO PRN SUPPLEMENT (Reported) Methotrexate 2.5 MG TABLET 6 TAB PO QTHURS RA (Reported) Multivit-Min/FA/Lycopen/Lutein (Centrum Silver Tablet) 0.4 MG-300 MCG-250 MCG TABLET 1 TAB PO DAILY SUPPLEMENT (Reported) Prednisone 5 MG TABLET 1 TAB PO QAM RA (Reported) Ranitidine (Ranitidine HCl) 150 MG TABLET 1 TAB PO BID GI (Reported) Review of Systems Review of Systems: Again is no history of fever or chills. The right ankle was fairly red from the onset. His been no vomiting or diarrhea or rectal bleeding There is no history of a rash or psoriasis. Past History Travel History Traveled to [place] past 21 day No Medical History Neurological: NONE EENT: NONE Cardiovascular: NONE Respiratory: asthma Gastrointestinal: diverticulitis, GERD Hepatic: NONE Renal: NONE Musculoskeletal: osteoarthritis, rheumatoid arthritis Psychiatric: anxiety, depression Endocrine: GOUT Blood Disorders: NONE Cancer(s): SKIN CANCER Surgical History Surgical History: appendectomy, knee replacement Psychosocial History Services at Home: None Smoking Status: Never Smoked ETOH Use: denies use Illicit Drug Use: denies illicit drug use Exam & Diagnostic Data Vital Signs and I&O Vital Signs Date Time Temp Pulse Resp B/P Pulse O2 O2 Flow FiO2 Ox Delivery Rate 09/30 1044 Room Air Room Air 09/30 0718 98.2 66 20 109/68 95 Room Air 09/30 0000 Room Air 09/29 2346 98.6 67 20 124/78 94 Room Air 09/29 2112 94 Room Air 09/29 2049 98.7 72 18 134/68 93 09/29 1742 98.7 64 18 131/67 100 Room Air 09/29 1648 95 Room Air 09/29 1607 99.0 80 19 148/70 94 Room Air Intake & Output 09/30 1600 09/30 0800 09/30 0000 Intake Total 150 10 Output Total 351 500 600 Balance -351 -350 -590 Intake, IV 10 Intake, Oral 150 Number 0 Bowel Movements Output, Stool 1 Output, Urine 350 500 600 Patient 140 lb Weight Physical Exam: On examination she's a well-developed well-nourished intact elderly female. Her hands reveal mild osteoarthritic changes but no typical shot signs of rheumatoid arthritis right wrist reveals some dorsal prominence with synovial thickening and limited range of motion. Her elbows have good range of motion without tenderness or any subcutaneous nodules. Shoulder was painful with very limited abduction. There is questionable swelling of the glenohumeral joint. Left shoulder had better range of motion. Her hips had fairly good range of motion her knees revealed the right knee has undergone a knee replacement. Left knee is unremarkable her right ankle is 2+ swollen warm slightly red and quite tender. There is very limited range of motion of the right ankle. Assessment/Plan Assessment: My assessment is that this represents an acute synovitis of her right ankle. The sudden onset and with her history of chondrocalcinosis of at least one joint in the past makes me believe this more likely represents acute pseudogout of the ankle rather than a flare of her rheumatoid arthritis. Recommendations: I would recommend increasing the prednisone to a higher dose than what I originally recommended over the phone last evening which was 5mg BID. Would favor at least 10-15 mg twice a day for 2 days followed by 10 mg twice a day for 2 more days and then 5 mg twice a day. Although this is not gout prophylactic colchicine perhaps should be begun at 0.6 mg daily as well. He really does not appear that the methotrexate has altered the course of her synovitis. I will consider tapering this as an outpatient. Once she is able to weight-bear she might benefit from a couple of days short-term rehabilitation and then return home. Her case was discussed with her son and son-in-law who are both present are in my consultation. Consult Acknowledgment - Thank you for your consult request.
[2016-09-30 15:00] VITALS: BP 120/68
--- NOTE | 2016-09-30 15:05 | ULTRASOUND REPORT ---
EXAMINATION: US TRIPLEX LOWER EXTREMITY, BILATERAL CLINICAL INFORMATION: Bilateral lower extremity edema and swelling COMPARISON: None TECHNIQUE: Color-flow triplex imaging with spectral analysis and compression Doppler were performed on the bilateral lower extremities. FINDINGS: Respiratory variation, normal compression and augmented flow are noted throughout the bilateral lower extremities. The visualized common femoral vein, superficial femoral vein, profunda femoral vein, popliteal vein show no evidence of deep venous thrombosis. Color Doppler flow is demonstrated within both calf veins. No waveforms obtained. There is no Gaviria's cyst. IMPRESSION: Normal triplex scan without evidence of deep venous thrombosis involving the bilateral lower extremities.
[2016-09-30 23:18] VITALS: BP 130/70
[2016-10-01 06:24] VITALS: BP 138/80
[2016-10-01 08:31] LABS: ABSOLUTE BASOPHIL COUNT 0 /CUMM (0.0-0.2); ABSOLUTE EOSINOPHIL COUNT 0 /CUMM (0.0-0.7); ABSOLUTE GRANULOCYTE CT 14.3 /CUMM (1.4-6.5); ABSOLUTE LYMPH COUNT 0.7 /CUMM (1.2-3.4); ABSOLUTE MONOCYTE COUNT 1.2 /CUMM (0.10-0.60); BASOPHIL % 0 % (0.0-2.0); EOSINOPHIL % 0 % (0-5); HEMATOCRIT 36.5 % (37-47); MEAN CORPUSCULAR HGB 31.1 PG (27.0-31.0); MEAN CORPUSCULAR HGB CONC 33.5 G/DL (33.0-37.0); MEAN PLATELET VOLUME 9.6 FL (7.4-10.4); PLATELET COUNT 320 /CUMM (130-400); RBC DISTRIBUTION WIDTH 15.1 % (11.5-14.5); RED BLOOD CELL CT 3.92 /CUMM (4.20-5.40); WHITE BLOOD CELL COUNT 16.3 /CUMM (4.8-10.8)
--- NOTE | 2016-10-01 08:34 | PN- Rheumatology ---
Subjective Subjective: Patient states her right ankle is feeling less painful today. She still has been unable to bear weight on it however. She denies significant joint pains elsewhere although as noted she has chronic discomfort and limited motion of her right wrist and right shoulder. She has been afebrile. She received the next 15 mg of prednisone last night. Objective Vital Signs and I&Os Vital Signs Date Time Temp Pulse Resp B/P Pulse O2 O2 Flow FiO2 Ox Delivery Rate 10/01 0624 97.5 90 18 138/80 94 Room Air 09/30 2318 97.7 70 20 130/70 94 Room Air 09/30 1500 97.7 101 20 120/68 90 09/30 1044 Room Air Room Air Intake & Output 10/01 1600 10/01 0000 09/30 1600 09/30 0000 Intake Total 360 480 150 10 Output Total 350 1200 451 500 600 Balance -350 -840 29 -350 -590 Intake, IV 0 10 Intake, Oral 360 480 150 Number 1 0 0 Bowel Movements Output, Stool 1 Output, Urine 350 1200 450 500 600 Patient 140 lb Weight Physical Exam: Right ankle still exhibits generalized 2+ swelling and limited motion and tenderness. However I believe the erythema is less than yesterday. Her right wrist still exhibits swelling dorsally with limited motion but no erythema. Current Medications: Current Medications Sig/Magnus Start time Last Medication Dose Route Stop Time Status Admin Acetaminophen 325 MG Q6P PRN 09/29 2315 AC PO Albuterol Sulfate 2 PUF Q6PRN PRN 09/30 1115 AC INH Budesonide/ 2 PUF BID 09/30 1112 AC 09/30 Formoterol Fumarate INH 211 Colchicine 600 MCG DAILY 09/30 1329 AC 09/30 PO 1612 Enoxaparin Sodium 40 MG DAILY 09/30 1000 AC 09/30 SC 0911 Famotidine 20 MG AT BEDTIME 09/30 2200 AC 09/30 PO 2118 Folic Acid 1 MG DAILY 09/30 1000 AC 09/30 PO 0910 Gabapentin 300 MG DAILY NEEDED PRN 09/29 2130 AC PO Lorazepam 0.5 MG QAM 09/30 1000 AC 09/30 PO 10/07 0959 0909 Oxycodone/ 1 TAB Q6P PRN 09/29 2315 AC 09/30 Acetaminophen PO 2120 Polyethylene Glycol 17 GM DAILY 04/09 1000 AC 09/30 PO 0909 Prednisone 15 MG BID 09/30 2200 AC 09/30 PO 2118 Prednisone 10 MG ONCE ONE 09/30 1330 DC 09/30 PO 09/30 1331 1612 Prednisone 5 MG BID 09/29 2301 DC 09/30 PO 0910 Senna/Docusate Sodium 2 TAB DAILY 09/30 1000 AC 09/30 PO 0910 Assessment/Plan Assessment: Began I believe this represents acute crystal-induced synovitis of the right ankle, most likely pseudogout. Plan: Continue prednisone 15 mg today and reduce to 10 mg twice a day tomorrow and the following day. I do not see where an x-ray of the right ankle was done and if not should be performed specifically to look for chondrocalcinosis. The methotrexate should be continued but I plan on tapering this as an outpatient.
[2016-10-01 09:21] LABS: GRANULOCYTE % 88.1 % (42.2-75.2)
--- NOTE | 2016-10-01 11:00 | PN- Housestaff ---
KENYA SEPULVEDA,GRANT 10/01/16 1100: Subjective Follow-up For: Acute gout Subjective: Patient is seen and examined while seated comfortable on a recliner. He still endorses right ankle pain however she reports interval improvement and was able to undergo physical therapy. She however complains of lower quadrant abdominal pain and she attributes this to constipation. Does not endorse any other acute complaints including increased swelling, fever, chills, chest pain, palpitation, nausea, vomiting, abdominal pain or dysuria. No acute overnight event reported by nursing staff. Review of Systems Constitutional: Reports: see HPI. Objective Last 24 Hrs of Vital Signs/I&O Vital Signs Date Time Temp Pulse Resp B/P Pulse O2 O2 Flow FiO2 Ox Delivery Rate 10/01 1408 99.1 72 20 120/80 94 Room Air 10/01 0624 97.5 90 18 138/80 94 Room Air 10/01 0000 94 Room Air 09/30 2318 97.7 70 20 130/70 94 Room Air Intake & Output 10/01 1600 10/01 0800 10/01 0000 Intake Total 840 50 360 Output Total 2879 810 5838 Balance -160 -550 -840 Intake, IV 0 Intake, Oral 840 50 360 Number 0 0 1 Bowel Movements Output, Urine 7864 631 5062 Physical Exam General Appearance: Alert, Oriented X3, Cooperative Skin: No Significant Lesion Cardiovascular: Regular Rate, Normal S1, Normal S2, No Murmurs Lungs: Clear to Auscultation, Normal Air Movement Abdomen: Normal Bowel Sounds, Soft, No Tenderness, No Hepatospenomegaly Neurological: Sensation Intact Extremities: lateral malleolus swelling on the right ankle noted, however improved compared to previous days Vascular: Normal Pulses, Pulses Symmetrical Assessment/Plan Assessment: This is a 80-year-old female with a significant history of gout on prednisone with sent flareup incident about 2 months ago that required intra-articular hydrocortisone, osteo-and rheumatoid arthritis on methotrexate spinal stenosis, asthma, GERD is presenting with 4-day-old history of right ankle pain and swelling which is suggestive of an acute exacerbation of her gout. She pain and swelling was severe enough to cause gait instability which led to fall. Preliminary CT head findings at the ED was unremarkable for any acute bleeding and also did not present with any focal neurological deficits. Assessment and plan #Gout exacerbation: We'll continue prednisone taper per rheumatology ( appreciated) and colchicine. Patient will be phylaxis by PT and will await recommendation either for home PT or STr #Right calf tenderness: Doppler ultrasound ordered today to rule out DVT. #Abdominal pain: Right lower quadrant with patient reporting previous history of pain which is associated with constipation. We'll continue bowel regimen. #Status post mechanical fall this morning. No loss of consciousness, dizziness or other complaints. CT head ordered was unremarkable for any acute intracranial pathology/bleed. #Will continue home medications including gabapentin, lorazepam, folic acid, ranitidine(converted to famotidine as this medication is not available in our pharmacy). #Patient takes her methotrexate every . Highely unlikely the patient will still been hospital by next . Therefore no need to consider methotrexate while in the hospital. #DVT prophylaxis at all times. #Patient is full code. Problem List: 1. Gout attack Pain Ratin Pain Location: lower extremities Pain Goal: Remain pain free Pain Plan: pain pathway Tomorrow's Labs & Rationales: none-discharge VEDA SERRATO 10/01/16 1115: Attending MD Review Statement Attending Statement Attending MD Statement: examined this patient, discuss w/resident/PA/DRAFTER DIRECTIONAL SURVEY, agreed w/resident/PA/DRAFTER DIRECTIONAL SURVEY, discussed with family, reviewed EMR data (avail), discussed with nursing, discussed with case mgmt, reviewed images Attending Assessment/Plan: 80F PMH gout, RA on Methotrexate and chronic Prednisone admitted for acute gouty attack of right ankle with severe pain and swelling. Today pain is improved. She has no other complaints. There is no evidence of septic arthritis. Vitals stable, exam benign, labs reviewed. Plan - Increased Prednisone per rheumatology recommendations. - Started Colchicine 0.6mg daily - Continue home medications - rhematology and orthopedics consulted during this admission. - PT eval for d/c recommendations - anticipate d/c soon. f/u PCP and rheum as o/p.
[2016-10-01] MEDS ORDERED: COLCHICINE0.6 M2 PO (13:16)
[2016-10-01] MEDS ORDERED: PREDNISONE5 M1 PO ×3 (13:19→22:28)
--- NOTE | 2016-10-01 13:36 | Patient Discharge Instructions ---
Discharge Instructions General Discharge Information You were seen/treated for: Gout attack Special Instructions: Please follow up with Dr Knight within 1 week Please follow up with your primary care within 1 week Please seek medical attention if you develop any increased joint pain/swelling or you develop fevers. Acute Coronary Syndrome Inclusion Criteria At DC or during hospital stay patient has or had the following: ACS DIAGNOSIS No Discharge Core Measures Meds if any: Prescribed or Continued at Discharge Meds if any: NOT Prescribed or Continued at Discharge Congestive Heart Failure Inclusion Criteria At DC or during hospital stay patient has or had the following: CHF DIAGNOSIS No Discharge Core Measures Meds if any: Prescribed or Continued at Discharge Meds if any: NOT Prescribed or Continued at Discharge Cerebrovascular accident Inclusion Criteria At DC or during hospital stay patient has or had the following: CVA/TIA Diagnosis No Discharge Core Measures Meds if any: Prescribed or Continued at Discharge Meds if any: NOT Prescribed or Continued at Discharge Venous thromboembolism Inclusion Criteria VTE Diagnosis No VTE Type NONE VTE Confirmed by (Test) NONE Discharge Core Measures - Per Current guidelines, there needs to be overlap - treatment for the first 5 days of Warfarin therapy. - If discharged on Warfarin prior to 5 days of - overlap therapy, the patient will need to be - assessed for post discharge needs including - *Post discharge parental anticoagulation - *Warfarin and/or parental anticoagulation education - *Follow up date to check INR post discharge At least 5 days overlap therapy as Inpatient No Meds if any: Prescribed or Continued at Discharge Note: Overlap Therapy is Warfarin and Anticoagulant Meds if any: NOT Prescribed or Continued at Discharge
[2016-10-01 14:08] VITALS: BP 120/80
[2016-10-01 22:09] VITALS: BP 108/64
[2016-10-02 06:09] VITALS: BP 114/70
[2016-10-02 08:02] LABS: ABSOLUTE BASOPHIL COUNT 0 /CUMM (0.0-0.2); ABSOLUTE EOSINOPHIL COUNT 0 /CUMM (0.0-0.7); ABSOLUTE GRANULOCYTE CT 10.7 /CUMM (1.4-6.5); ABSOLUTE LYMPH COUNT 0.9 /CUMM (1.2-3.4); ABSOLUTE MONOCYTE COUNT 0.6 /CUMM (0.10-0.60); BASOPHIL % 0.1 % (0.0-2.0); EOSINOPHIL % 0.1 % (0-5); GRANULOCYTE % 87.4 % (42.2-75.2); HEMATOCRIT 34.7 % (37-47); MEAN CORPUSCULAR HGB 30.8 PG (27.0-31.0); MEAN CORPUSCULAR HGB CONC 32.9 G/DL (33.0-37.0); MEAN CORPUSCULAR VOLUME 93.6 FL (81.0-99.0); MEAN PLATELET VOLUME 9.3 FL (7.4-10.4); PLATELET COUNT 316 /CUMM (130-400); RBC DISTRIBUTION WIDTH 15.1 % (11.5-14.5); RED BLOOD CELL CT 3.71 /CUMM (4.20-5.40); WHITE BLOOD CELL COUNT 12.3 /CUMM (4.8-10.8)
--- NOTE | 2016-10-02 08:43 | PN- Housestaff ---
SERINA SEPULVEDA,KRITHI 10/02/16 0842: Subjective Follow-up For: Gout Subjective: Saw patient at bedside this a.m. She stated that her right ankle felt much better. However she did endorse some nausea and some left-sided abdominal pain. She stated the pain was associated with constipation. She did have a bowel movement yesterday after taking prune juice, after which she states pain improved. She does have a history of diverticulitis on the left side. Patient denies any bright red blood per rectum. Review of Systems Constitutional: Reports: no symptoms. EENTM: Denies: double vision. Cardiovascular: Denies: chest pain, palpitations. Respiratory: Denies: cough, short of breath. Gastrointestinal: Reports: abdominal pain, nausea. Denies: diarrhea, distention, bowel incontinence, melena, bloody stool, vomiting. Genitourinary: Reports: no symptoms. Musculoskeletal: Reports: gout, joint pain, joint swelling. Skin: Reports: no symptoms. Objective Last 24 Hrs of Vital Signs/I&O Vital Signs Date Time Temp Pulse Resp B/P Pulse O2 O2 Flow FiO2 Ox Delivery Rate 10/02 0609 97.8 55 20 114/70 95 Room Air 10/01 2209 97.6 83 20 108/64 94 Room Air 10/01 1408 99.1 72 20 120/80 94 Room Air Intake & Output 10/02 1600 10/02 0800 10/02 0000 Intake Total Output Total 200 675 150 Balance -200 -675 -150 Number 6 Bowel Movements Output, Urine 200 675 150 Physical Exam General Appearance: Alert, Oriented X3, Cooperative, No Acute Distress Skin: No Rashes, No Breakdown HEENT: Atraumatic, PERRLA, EOMI, Mucous Membr. moist/pink Neck: Supple, No JVD Cardiovascular: Regular Rate, Normal S1, Normal S2 Lungs: Normal Air Movement, slight crackles Abdomen: Soft, patient had some abdominal tenderness on the left lower quadrant. No rebound or guarding. Extremities: right ankle slightly more swollen and erythematous of the left ankle. Normal range of motion. Last 24 Hrs of Lab/Venancio Results Last 24 Hrs of Labs/Mics: Laboratory Tests 10/02/16 0710: CBC w Diff Pending, WBC Pending, RBC Pending, Hgb Pending, Hct Pending, MCV Pending, MCH Pending, RDW Pending, Plt Count Pending, MPV Pending, Gran % Pending, Lymphocytes % Pending, Monocytes % Pending, Eosinophils % Pending, Basophils % Pending, Absolute Granulocytes Pending, Absolute Lymphocytes Pending , Absolute Monocytes Pending, Absolute Eosinophils Pending, Absolute Basophils Pending, PUBS MCHC Pending Assessment/Plan Assessment: This is an 80-year-old female past medical history significant for gout on prednisone and recent administration of intra-articular steroids, osteo-and rheumatoid arthritis on methotrexate, spinal stenosis, asthma, GERD, who comes in with chief complaint of right ankle pain. Patient diagnosed with gout and management medical floor. Initial workup: Preliminary CT head findings at the ED was unremarkable for any acute bleeding and also did not present with any focal neurological deficits. Assessment and plan #Gout exacerbation: * Prednisone taper per rheumatology * Start colchicine * Continue physical therapy * Going home with services. #Right calf tenderness: Doppler ultrasound to rule out DVT negative on 2016 #Abdominal pain: Patient continues to complain of left lower quadrant pain. She states that she has had episodes of similar pain previously. This pain is usually associated with constipation. Last bowel movement yesterday after prune juice; since then has had 5 BM. Patient states the pain is ameliorated after bowel movement. However this a.m. she continues to have pain on that side in addition to nausea. She states she does have a history of diverticulitis; denies any bright red blood per rectum. * Bowel regimen * Zofran when necessary * We'll obtain abdominal CT #Status post mechanical fall: No loss of consciousness, dizziness or other complaints. CT head ordered was unremarkable for any acute intracranial pathology/bleed. #Will continue home medications including gabapentin, lorazepam, folic acid, ranitidine(converted to famotidine as this medication is not available in our pharmacy). #Patient takes her methotrexate every . Highely unlikely the patient will still been hospital by next . Therefore no need to consider methotrexate while in the hospital. DVT prophylaxis at all times. Patient is full code. Problem List: 1. Osteoarthritis 2. Fall 3. Gout attack Pain Ratin Pain Location: none Pain Goal: Remain pain free Pain Plan: percocet Tomorrow's Labs & Rationales: cbc bep DVT/Prophylaxis: mechanical VEDA SERRATO 10/02/16 1116: Attending MD Review Statement Attending Statement Attending MD Statement: examined this patient, discuss w/resident/PA/HIGH SPEED OPERATOR, agreed w/resident/PA/HIGH SPEED OPERATOR, discussed with family, reviewed EMR data (avail), discussed with nursing, discussed with case mgmt, reviewed images Attending Assessment/Plan: 80F PMH gout, RA on Methotrexate and chronic Prednisone admitted for acute gouty attack of right ankle with severe pain and swelling. Today pain is improved. She has no other complaints. There is no evidence of septic arthritis. Vitals stable, exam benign, labs reviewed. Patient c/o left lower quadrat abdominal pain 7/10 in intensity, bowel movement+ , h/o diverticultitis in past. ASSESSMENT 1. abdominal pain LLQ 2. Constipation 3. acute gouty arthritic pain on steroids 4. Pain control 5. h/o diverticultiis in past 6. RA on methotrexate 7. Acid reflux disease/GERD Plan - Increased Prednisone per rheumatology recommendations. - Started Colchicine 0.6mg daily - obtain CT with oral contrast r/o diverticulitis - add maalox for prn acid reflux. - Continue home medications - rhematology and orthopedics consulted during this admission. - PT eval for d/c recommendations - anticipate d/c soon. f/u PCP and rheum as o/p.
[2016-10-02] MEDS ORDERED: PERCOCET 5-3251 EACH PO ×2 (11:03→15:30)
--- NOTE | 2016-10-02 14:06 | CT SCAN REPORT ---
EXAMINATION: CT ABDOMEN AND PELVIS WITH CONTRAST CLINICAL INFORMATION: 80-year-old female with left sided abdominal pain and nausea. Evaluate for diverticulitis or bowel obstruction. COMPARISON: CT of abdomen and pelvis from 06/08/2013. TECHNIQUE: Multidetector volumetric imaging was performed from the superior aspect of the liver through the pubic symphysis following administration of oral contrast. Sagittal and coronal reformatted images were obtained on the technologist's workstation. DLP: 445 mGy-cm FINDINGS: LUNG BASES: Mild atelectasis in dependent aspect of each lower lobe. Mild atherosclerotic calcification of the visualized thoracic aorta and coronary arteries. No pericardial or pleural effusion. LIVER, GALLBLADDER, AND BILIARY TREE: Liver has normal size, contour and attenuation. No suspicious hepatic lesion or intrahepatic bile duct dilatation. Gallbladder is unremarkable. PANCREAS: Unremarkable. SPLEEN: Unremarkable. ADRENAL GLANDS: Unremarkable. KIDNEYS AND URETERS: The kidneys are normal in size, shape, and attenuation. No hydronephrosis, hydroureter, or calculi seen. No perinephric stranding. There is a 0.9 cm cortical cyst of the lower pole of left kidney. BLADDER: Unremarkable. GASTROINTESTINAL TRACT: Stomach is unremarkable. Loops of bowel are normal in size. There are diverticula of the descending and sigmoid colon. There is an area of fat stranding along the posterior wall of the descending colon, likely secondary to mild diverticulitis. No pneumoperitoneum. ABDOMINAL WALL: A small amount of fat protrudes into the umbilicus. The subcutaneous tissue gas in the right lower abdominal wall is likely related to recent medication injections. LYMPH NODES: No pathologic sized lymph nodes within the abdomen or pelvis. VASCULAR: Atherosclerotic calcification of the abdominal aorta without aneurysm. No retroperitoneal hematoma. PELVIC VISCERA: The uterus is unremarkable. No pelvic mass or free fluid. 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 No aggressive bone lesions. IMPRESSION: 1. Mild diverticulitis of the descending colon. 2. No evidence of urolithiasis or urinary tract obstruction.
[2016-10-02 14:24] VITALS: BP 142/60
[2016-10-02 22:38] VITALS: BP 140/60
[2016-10-03 06:30] VITALS: BP 124/70
[2016-10-03] MEDS ORDERED: AUGMENTIN 875-1 EACH PO (07:58)
--- NOTE | 2016-10-03 08:04 | PN- Housestaff ---
SERINA SEPULVEDA,RANDAPATIENCE 10/03/16 0746: Subjective Follow-up For: Gout Diverticulitis Status post mechanical fall Subjective: Saw patient at bedside this a.m. She stated that her abdominal pain became a sharp 10 out of 10 pain around 4 AM this morning. She received Percocet and has since held down. However she states abdominal pain continues to worsen. She continues to be nothing by mouth and currently does not feel like she wants to try a diet. Last bowel movement day before yesterday. Her gouty ankle, which was her initial chief complaint, seems to have resolved. Review of Systems Constitutional: Denies: chills, fever. EENTM: Reports: no symptoms. Cardiovascular: Denies: chest pain, palpitations. Respiratory: Denies: cough, short of breath. Gastrointestinal: Reports: abdominal pain, constipation. Denies: diarrhea, nausea. Genitourinary: Reports: no symptoms. Musculoskeletal: Reports: no symptoms. Skin: Reports: no symptoms. Objective Last 24 Hrs of Vital Signs/I&O Vital Signs Date Time Temp Pulse Resp B/P Pulse O2 O2 Flow FiO2 Ox Delivery Rate 10/03 0630 97.7 57 20 124/70 94 Room Air 10/02 2238 97.9 58 20 140/60 94 10/02 1424 98.1 67 18 142/60 94 Room Air 10/02 0800 Room Air Intake & Output 10/03 0800 10/03 0000 10/02 1600 Intake Total 360 720 Output Total 400 600 520 Balance -400 -240 200 Intake, IV 300 20 Intake, Oral 60 700 Output, Urine 400 600 520 Physical Exam General Appearance: Alert, Oriented X3, Cooperative, No Acute Distress Skin: No Rashes, No Breakdown HEENT: Atraumatic, EOMI Neck: Supple Cardiovascular: Regular Rate, Normal S1, Normal S2 Lungs: Clear to Auscultation, Normal Air Movement Abdomen: Soft, tender to palpation on LUQ, LLQ. No rebound or guarding. Neurological: Normal Speech Current Medications: Current Medications Sig/Magnus Start time Last Medication Dose Route Stop Time Status Admin Acetaminophen 325 MG .STK-MED ONE 10/02 1353 DC PO 10/02 1354 Acetaminophen 325 MG Q6P PRN 09/29 2315 AC 10/02 PO 1406 Al Hydroxide/Mg 30 ML Q4-6 PRN PRN 10/02 1115 AC 10/03 Hydroxide PO 0734 Albuterol Sulfate 2 PUF Q6PRN PRN 09/30 1115 AC INH Budesonide/ 2 PUF BID 09/30 1112 AC 10/02 Formoterol Fumarate INH 2151 Ciprofloxacin 400 MG Q12H 10/03 0500 AC 10/03 Dextrose/Water 200 ML IV 0423 Ciprofloxacin 400 MG Q12 10/02 1547 DC 10/02 Dextrose/Water 200 ML IV 1709 Colchicine 600 MCG DAILY 09/30 1329 AC 10/02 PO 0846 Enoxaparin Sodium 40 MG DAILY 09/30 1000 AC 10/02 SC 0849 Famotidine 20 MG AT BEDTIME 09/30 2200 AC 10/02 PO 2151 Folic Acid 1 MG DAILY 09/30 1000 AC 10/02 PO 0846 Gabapentin 300 MG DAILY NEEDED PRN 09/29 2130 AC 10/01 PO 1135 Lorazepam 0.5 MG QAM 09/30 1000 AC 10/02 PO 10/07 0959 0847 Metronidazole 500 MG Q8H 10/03 0000 AC 10/03 N/A 1 UNIT IV 0045 Metronidazole 500 MG IQ8 10/02 1600 DC N/A 1 UNIT IV Ondansetron HCl 4 MG Q6P PRN 10/02 0845 AC 10/02 IV 0848 Oxycodone/ 1 TAB Q6P PRN 09/29 2315 AC 10/03 Acetaminophen PO 0415 Polyethylene Glycol 17 GM DAILY 10/01 1101 AC PO Prednisone 10 MG BID 10/02 1000 AC 10/02 PO 2151 Prednisone 15 MG BID 09/30 2200 DC 10/01 PO 2115 Senna/Docusate Sodium 2 TAB DAILY 09/30 1000 AC 10/01 PO 0844 Sodium Chloride 1,000 ML Q13H 10/02 1600 AC 10/02 IV 1709 Assessment/Plan Assessment: This is an 80-year-old female past medical history significant for gout on prednisone and recent administration of intra-articular steroids, osteo-and rheumatoid arthritis on methotrexate, spinal stenosis, asthma, GERD, who comes in with chief complaint of right ankle pain, s/p mechanical fall. Patient was dx with gout and was admitted to Gen Med floor. Admission is complicated by a new episode of diverticulitis of left quadrant. Assessment and plan: Gout exacerbation: * Prednisone taper per rheumatology * Start colchicine * Continue physical therapy * Going home with services. Right calf tenderness: RESOLVED. Doppler ultrasound to rule out DVT negative on 09/30/2016 Abdominal pain: Patient has had abdominal pain for about 2-[address] scan confirmed mild diverticulitis. This is patient's fourth episode of diverticulitis. The last episode was about 5 years ago. Patient is currently nothing by mouth, on IV ciprofloxacin and IV Flagyl. Afebrile. Last bowel movement on 10/01/2016. Pt still has excruciating abdominal pain. * Bowel regimen * Zofran when necessary * Cont IV abx * npo * Pain control with Tylenol and Percocet Status post mechanical fall: RESOLVED. No loss of consciousness, dizziness or other complaints. CT head ordered was unremarkable for any acute intracranial pathology/bleed. Will continue home medications including gabapentin, lorazepam, folic acid, ranitidine(converted to famotidine as this medication is not available in our pharmacy). Patient takes her methotrexate every . DVT prophylaxis at all times. Patient is full code. Problem List: 1. Acute diverticulitis 2. Osteoarthritis 3. Asthma 4. Gout attack Pain Ratin Pain Location: L. ANKLE AND L. ABDOMEN Pain Goal: Remain pain free Pain Plan: Current Tomorrow's Labs & Rationales: none VEDA SERRATO 10/03/16 1113: Attending MD Review Statement Attending Statement Attending MD Statement: examined this patient, discuss w/resident/PA/DIRECTOR OF PLAYER PERSONNEL, agreed w/resident/PA/DIRECTOR OF PLAYER PERSONNEL, discussed with family, reviewed EMR data (avail), discussed with nursing, discussed with case mgmt, reviewed images Attending Assessment/Plan: 80F PMH gout, RA on Methotrexate and chronic Prednisone admitted for acute gouty attack of right ankle with severe pain and swelling. Today pain is improved. She has no other complaints. There is no evidence of septic arthritis. Vitals stable, exam LLQ tenderness, labs reviewed. Patient c/o left lower quadrat abdominal pain 7/10 in intensity, bowel movement+ , h/o diverticultitis in past. CT abdomen/pelvis shows diverticulitis. ASSESSMENT 1. abdominal pain LLQ 2/2 acute diverticulitis. 2. Constipation 3. acute gouty arthritic pain on steroids 4. Pain control 5. h/o diverticultiis in past 6. RA on methotrexate 7. Acid reflux disease/GERD. Plan - Increased Prednisone per rheumatology recommendations. - Started Colchicine 0.6mg daily - CT with oral contrast evidence of diverticulitis, bowel rest, abx i/v, IVF gentle hydration. pain control. - added maalox for prn acid reflux. - Continue home medications - rhematology and orthopedics consulted during this admission. - PT eval for d/c recommendations - referral to GI at discharge o/p colonsocpy in 4-6 weeks. - f/u PCP and rheum as o/p.
[2016-10-03] MEDS ORDERED: PREDNISONE10 M2 PO (08:56)
[2016-10-03 14:40] VITALS: BP 142/78
[2016-10-03 22:51] VITALS: BP 160/100
[2016-10-04 06:48] VITALS: BP 124/78
--- NOTE | 2016-10-04 07:48 | PN- Housestaff ---
SERINA SEPULVEDA,TERRY 10/04/16 0741: Subjective Follow-up For: Gout Diverticulitis Subjective: Saw patient at bedside this a.m. Patient stated that her pain was still 6 or 7 out of 10. She stated earlier in the morning she had 10 out of 10 stabbing pain for which she received oral pain medication. She states her pain has moved from the left quadrant gradually to the right quadrant as well. Last bowel movement was the day before yesterday. Patient has no difficulty urinating. She remains nothing by mouth. However, today she states that she would be interested in advancing to clear liquids. Review of Systems Constitutional: Denies: chills, fever, weakness. EENTM: Reports: no symptoms. Cardiovascular: Denies: chest pain, palpitations. Respiratory: Denies: cough, short of breath. Gastrointestinal: Reports: abdominal pain, constipation, distention. Denies: diarrhea, nausea, vomiting. Genitourinary: Reports: no symptoms. Musculoskeletal: Denies: joint pain, joint swelling. Skin: Reports: no symptoms. Objective Last 24 Hrs of Vital Signs/I&O Vital Signs Date Time Temp Pulse Resp B/P Pulse O2 O2 Flow FiO2 Ox Delivery Rate 10/04 0648 97.7 53 20 124/78 95 Room Air 10/03 2251 98.3 63 20 160/100 93 Room Air 10/03 1440 97.9 66 20 142/78 93 10/03 0800 Room Air Intake & Output 10/04 0800 10/04 0000 10/03 1600 Intake Total 645 690 Output Total 550 900 500 Balance -550 -255 190 Intake, IV 525 450 Intake, Oral 120 240 Output, Urine 550 900 500 Patient 63.503 kg Weight Physical Exam General Appearance: Alert, Oriented X3, Cooperative, No Acute Distress Skin: No Rashes, No Breakdown, No Significant Lesion HEENT: Atraumatic, PERRLA, EOMI, Mucous Membr. moist/pink Neck: Supple Cardiovascular: Regular Rate, Normal S1, Normal S2, No Murmurs Lungs: Clear to Auscultation, Normal Air Movement Abdomen: hyperactive bowel sounds, tender to palpation diffusely in lower abdomen. Neurological: Normal Speech Extremities: r. ankle not warm, swollen or tender. Current Medications: Current Medications Sig/Magnus Start time Last Medication Dose Route Stop Time Status Admin Acetaminophen 325 MG Q6P PRN 09/29 2315 AC 10/02 PO 1406 Al Hydroxide/Mg 30 ML .STK-MED ONE 10/03 2143 DC Hydroxide PO 10/03 2144 Al Hydroxide/Mg 30 ML Q4-6 PRN PRN 10/02 1115 AC 10/03 Hydroxide PO 2145 Albuterol Sulfate 2 PUF Q6PRN PRN 09/30 1115 AC INH Budesonide/ 2 PUF BID 09/30 1112 AC 10/03 Formoterol Fumarate INH 2146 Ceftriaxone Sodium 1,000 MG DAILY@1400 10/03 1454 AC 10/03 IV 1648 Ciprofloxacin 400 MG Q12H 10/03 0500 DC 10/03 Dextrose/Water 200 ML IV 0423 Colchicine 600 MCG DAILY 09/30 1329 AC 10/03 PO 1121 Dextrose/Sodium 1,000 ML Q13H 10/03 1330 AC 10/04 Chloride IV 0500 Enoxaparin Sodium 40 MG DAILY 09/30 1000 AC 10/03 SC 1120 Famotidine 20 MG AT BEDTIME 09/30 2200 AC 10/03 PO 2146 Folic Acid 1 MG DAILY 09/30 1000 AC 10/03 PO 1121 Gabapentin 300 MG DAILY NEEDED PRN 09/29 2130 AC 10/01 PO 1135 Lorazepam 0.5 MG QAM 09/30 1000 AC 10/03 PO 10/07 0959 1121 Metronidazole 500 MG Q8H 10/03 0000 AC 10/04 N/A 1 UNIT IV 0050 Morphine Sulfate 1 MG Q6-PRN PRN 10/03 1330 AC 10/04 IV 0530 Morphine Sulfate 1 MG ONCE ONE 10/03 1045 DC 10/03 IV 10/03 1046 1122 Ondansetron HCl 4 MG Q6P PRN 10/02 0845 AC 10/02 IV 0848 Oxycodone/ 1 TAB Q6P PRN 09/29 2315 AC 10/03 Acetaminophen PO 2151 Polyethylene Glycol 17 GM DAILY 10/01 1101 AC 10/03 PO 1121 Prednisone 10 MG BID 10/02 1000 AC 10/03 PO 2146 Senna/Docusate Sodium 2 TAB DAILY 09/30 1000 AC 10/03 PO 1121 Sodium Chloride 1,000 ML Q13H 10/02 1600 DC 10/02 IV 1709 Last 24 Hrs of Lab/Venancio Results Last 24 Hrs of Labs/Mics: Laboratory Tests 10/04/16 0710: Sodium Pending, Potassium Pending, Chloride Pending, Carbon Dioxide Pending, Anion Gap Pending, BUN Pending, Creatinine Pending, BUN/Creatinine Ratio Pending , CBC w Diff Pending, WBC Pending, RBC Pending, Hgb Pending, Hct Pending, MCV Pending, MCH Pending, RDW Pending, Plt Count Pending, MPV Pending, PUBS MCHC Pending Assessment/Plan Assessment: This is an 80-year-old female past medical history significant for gout on prednisone and recent administration of intra-articular steroids, osteo-and rheumatoid arthritis on methotrexate, spinal stenosis, asthma, GERD, who comes in with chief complaint of right ankle pain, s/p mechanical fall. Patient was dx with gout and was admitted to Gen [facility] floor. Admission is complicated by a new episode of diverticulitis of left quadrant. Assessment and plan: Gout exacerbation: * Prednisone taper per rheumatology * Cont' colchicine * Continue physical therapy * Going home with services. Abdominal pain: CT scan on 10/02/2012 confirmed mild diverticulitis. This is patient's fourth episode of diverticulitis. The last episode was about 5 years ago. Patient is currently nothing by mouth, on IV ceftriaxone and IV Flagyl; ntoe she previously got one day of Cipro instead of Ceftraixone. Afebrile. Pain rated 7/10 currently. Her leukocytosis has resolved to 8.1 this AM; previousy up to 16.3. * Bowel regimen * Zofran when necessary * Cont IV abx * Advance to clear liquid diet this AM. * Pain control with Tylenol and Percocet Right calf tenderness: RESOLVED. Doppler ultrasound to rule out DVT negative on 09/30/2016 Status post mechanical fall: RESOLVED. No loss of consciousness, dizziness or other complaints. CT head ordered was unremarkable for any acute intracranial pathology/bleed. Will continue home medications including gabapentin, lorazepam, folic acid, ranitidine(converted to famotidine as this medication is not available in our pharmacy). Patient takes her methotrexate every Thursday. DVT prophylaxis at all times. Patient is full code. Problem List: 1. Acute diverticulitis 2. Osteoarthritis 3. Gout attack Pain Ratin Pain Location: none Pain Goal: Remain pain free Pain Plan: none Tomorrow's Labs & Rationales: cbc bep DVT/Prophylaxis: mechanical, pharmacological VEDA SERRATO 10/04/16 1106: Attending MD Review Statement Attending Statement Attending MD Statement: examined this patient, discuss w/resident/PA/ESTHETICIAN/OWNER, agreed w/resident/PA/ESTHETICIAN/OWNER, discussed with family, reviewed EMR data (avail), discussed with nursing, discussed with case mgmt, reviewed images Attending Assessment/Plan: 80F PMH gout, RA on Methotrexate and chronic Prednisone admitted for acute gouty attack of right ankle with severe pain and swelling. Today pain is improved. She has no other complaints. There is no evidence of septic arthritis. Vitals stable, exam LLQ tenderness, labs reviewed. Patient c/o left lower quadrat abdominal pain 7/10 in intensity, bowel movement+ , h/o diverticultitis in past. CT abdomen/pelvis shows diverticulitis. ASSESSMENT 1. abdominal pain LLQ 2/2 acute diverticulitis. 2. Constipation 3. acute gouty arthritic pain on steroids 4. Pain control 5. h/o diverticultiis in past 6. RA on methotrexate 7. Acid reflux disease/GERD. 8. Leukocytosis improved. Plan - Increased Prednisone per rheumatology recommendations. - Started Colchicine 0.6mg daily - CT with oral contrast evidence of diverticulitis, bowel rest, abx i/v, IVF gentle hydration. pain control. - added maalox for prn acid reflux. - Continue home medications - rhematology and orthopedics consulted during this admission. - PT eval for d/c recommendations - referral to GI at discharge o/p colonsocpy in 4-6 weeks. - f/u PCP and rheum as o/p.
[2016-10-04 08:20] LABS: ABSOLUTE BASOPHIL COUNT 0 /CUMM (0.0-0.2); ABSOLUTE EOSINOPHIL COUNT 0 /CUMM (0.0-0.7); ABSOLUTE GRANULOCYTE CT 6.6 /CUMM (1.4-6.5); ABSOLUTE LYMPH COUNT 0.7 /CUMM (1.2-3.4); ABSOLUTE MONOCYTE COUNT 0.8 /CUMM (0.10-0.60); BASOPHIL % 0.1 % (0.0-2.0); EOSINOPHIL % 0.3 % (0-5); HEMATOCRIT 34.3 % (37-47); MEAN CORPUSCULAR HGB 31.3 PG (27.0-31.0); MEAN CORPUSCULAR HGB CONC 34.1 G/DL (33.0-37.0); MEAN CORPUSCULAR VOLUME 91.7 FL (81.0-99.0); MEAN PLATELET VOLUME 8.9 FL (7.4-10.4); PLATELET COUNT 319 /CUMM (130-400); RBC DISTRIBUTION WIDTH 14.6 % (11.5-14.5); RED BLOOD CELL CT 3.73 /CUMM (4.20-5.40); WHITE BLOOD CELL COUNT 8.1 /CUMM (4.8-10.8)
[2016-10-04 14:17] VITALS: BP 158/76
[2016-10-04 23:30] VITALS: BP 170/88
[2016-10-05 07:34] VITALS: BP 138/74
[2016-10-05 07:56] LABS: ABSOLUTE BASOPHIL COUNT 0 /CUMM (0.0-0.2); ABSOLUTE EOSINOPHIL COUNT 0.1 /CUMM (0.0-0.7); ABSOLUTE GRANULOCYTE CT 8.9 /CUMM (1.4-6.5); ABSOLUTE LYMPH COUNT 0.8 /CUMM (1.2-3.4); ABSOLUTE MONOCYTE COUNT 0.9 /CUMM (0.10-0.60); BASOPHIL % 0.1 % (0.0-2.0); EOSINOPHIL % 0.7 % (0-5); HEMATOCRIT 37.5 % (37-47); MEAN CORPUSCULAR HGB 30.8 PG (27.0-31.0); MEAN CORPUSCULAR HGB CONC 33.2 G/DL (33.0-37.0); MEAN CORPUSCULAR VOLUME 92.8 FL (81.0-99.0); MEAN PLATELET VOLUME 8.5 FL (7.4-10.4); PLATELET COUNT 363 /CUMM (130-400); RBC DISTRIBUTION WIDTH 14.9 % (11.5-14.5); RED BLOOD CELL CT 4.04 /CUMM (4.20-5.40); WHITE BLOOD CELL COUNT 10.8 /CUMM (4.8-10.8)
--- NOTE | 2016-10-05 09:05 | Discharge Summary ---
Visit Information Visit Dates Admission Date: 09/29/16 Discharge Date: 10/05/16 Hospital Course Course Attending Physician: VEDA SERRATO MD Primary Care Physician: LEIGHTON HAN Hospital Course: 80 yo F with h/o HTN, spinal stenosis, OA, RA on methotrexate, gout on prednisone, asthma, GERD, is here for evaluation of 4-day h/o right ankle pain and swelling with resultant gait instability, weakness and fall. She was advised by Dr. Ragsdale to double her dose of prednisone with no relief, hence she came to the ER. She also notes, right calf swelling which is unusual for her and the pain radiates from the ankle joint to the calf. She has a h/o gout especially of right ankle, last exacerbation was few months ago for which she received intra- articular cortisone with relief in her symptoms. Of note, patient was recently treated for bronchitis with Zpak (1 week ago), has mild persistent cough without sputum production. VSS. Right ankle: diffuse swelling with limited ROM, erythema+, tenderness+. Calf tenderness right side+. Back: left sided bruise+ under 12th rib. Labs: WBC 14.1, trop neg. UA clear. EKG: SR. CT head neg. Ankle xray: diffuse osteopenia, periarticular soft tissue swelling at right ankle, no fracture or dislocation. CXR neg. No rib fracture. Hospital course: She was treated with the following problems 1.Acute gouty arthritis 2.Acute divertculitis found on second gabriel f admission 3.Chroninc RA and on methotrexate 4.HTN 5.GERD We mnaged gout with prednisone and started and also started on the colchiocine She will be discharged oon prednisone 10 mg,colchcicen 0.6mg and f/u with Dr ragsdale on discharge . Maverick Ragsdale MD plans on tapering the prednisone down outpatient basis The patient had an acute diverticulitis which was an incidental finding on the patient's admission. CAT scan was negative. In the hospital she was treated with IV ceftriaxone and Flagyl she received 4 days of IV antibiotics but she is still left with 6 more days of oral antibiotics which was prescribed as Augmentin for the next 6 days. She was also instructed to get a colonoscopy in the next 6 weeks once the diverticulitis resolves. No other changes to the patient's medications were made. The patient is tolerating oral intake moderately well with slight discomfort. We have recommended Percocet for abdominal pain discomfort. Allergies: Coded Allergies: lactase (LACTOSE INTOLERANT 09/29/16) Pertinent Lab Results: Vital Signs Date Time Temp Pulse Resp B/P Pulse O2 O2 Flow FiO2 Ox Delivery Rate 10/05 0734 98.2 65 18 138/74 93 Room Air 10/05 0000 Room Air 10/04 2330 97.9 64 20 170/88 98 Room Air 10/04 1417 97.6 70 20 158/76 95 10/04 1041 Room Air Room Air Disposition Summary Disposition Principal Diagnosis: acute gout Additional Diagnosis: 2.acute diveticulitis 3.Chroninc RA and on methotrexate 4.HTN 5.GERD Discharge Disposition: SNF Discharge Instructions General Discharge Information Code Status: Full Code Patient's Diet: low residual diet Patient's Activity: as tolerated Follow-Up Instructions/Appts: f/u with pcp in 1 week f/u with dr ragsdale in 1 week Medications at Discharge Discharge Medications: Continue taking these medications: Codeine Phosphate/Guaifenesi (Cheratussin AC Syrup) 10 MG-100 MG/5 ML LIQUID 5 Milliliters ORAL TAKE AT BEDTIME Qty = 90 Ranitidine (Ranitidine HCl) 150 MG TABLET 1 Tablet ORAL TWICE DAILY Qty = 60 Diclofenac Epolamine (Flector) 1.3 % PATCH.TD12 1 Patch On the skin TWICE DAILY as needed for PAIN Qty = 60 Bifidobacterium Infantis (Align) (Unknown Strength) TAB.CHEW 1 Tablet ORAL DAILY Multivit-Min/FA/Lycopen/Lutein (Centrum Silver Tablet) 0.4 MG-300 MCG-250 MCG TABLET 1 Tablet ORAL DAILY Cholecalciferol (Vitamin D3) (Vitamin D) (Unknown Strength) TABLET Unknown Dose ORAL DAILY Albuterol Sulfate (Proair Hfa) 90 MCG HFA.AER.AD 2 Puff Inhale through mouth as needed for ASTHMA Days = 50 Fluticasone/Salmeterol (Advair 250-50 Diskus) 250 MCG-50 MCG/DOSE BLST.W.DEV 1 Puff Inhale through mouth TWICE DAILY Days = 90 Lorazepam (Ativan) 0.5 MG TABLET 1 Tablet ORAL Every Morning Folic Acid (Folic Acid) 1 MG TABLET 1 Tablet ORAL DAILY Methotrexate (Methotrexate) 2.5 MG TABLET 6 Tablet ORAL EVERY SATURDAY Gabapentin (Gabapentin) 300 MG CAPSULE 1 Capsule ORAL as needed for NERVE PAIN Magnesium Oxide (Magnesium) 400 MG TABLET 1 Tablet ORAL as needed for SUPPLEMENT Benzonatate (Benzonatate) 100 MG CAPSULE 1 Capsule ORAL THREE TIMES DAILY as needed for COUGH Qty = 21 Start taking the following new medications: Colchicine (Colchicine) 0.6 MG TABLET 600 Microgram ORAL DAILY Qty = 30 No Refills Amoxicillin/Potassium Clav (Augmentin 875-125 Tablet) 875 MG-125 MG TABLET 1 Tablet ORAL TWICE DAILY Days = 6 No Refills Oxycodone HCl/Acetaminophen (Percocet 5-325 MG Tablet) 5 MG-325 MG TABLET 1 Tablet ORAL EVERY SIX HOURS NEEDED as needed for PAIN SCALE 6-10 Qty = 10 No Refills Prednisone (Prednisone) 10 MG TABLET 1 Tablet ORAL DAILY Days = 10 No Refills Copies To: MAVERICK RASGDALE MD Copies To: MAVERICK RAGSDALE MD
[2016-10-05] MEDS ORDERED: AUGMENTIN 875-1 EACH PO ×2 (09:08→10:32)
--- NOTE | 2016-10-05 11:22 | PN- Housestaff ---
SERINA SEPULVEDA,TERRY 10/05/16 1113: Subjective Follow-up For: Gout Diverticulitis Subjective: Saw patient at bedside this a.m. She stated that her pain was better today than yesterday. However she continues to have 4-5 out of 10 diffuse lower abdominal pain. She states the pain is alleviated by the Percocet. Has not had a bowel movement in 48 hours. She did want to advance her diet from clear liquid and pure to regular. She ate a small quantity of her regular breakfast and said she did feel better. No acute overnight events and no complaints. Patient will be discharged to [facility] ([facility] today. She was seen by PT who recommended [facility] given gait instability. Review of Systems Constitutional: Denies: chills, fever, weakness. EENTM: Reports: no symptoms. Cardiovascular: Reports: no symptoms. Respiratory: Denies: short of breath. Gastrointestinal: Reports: constipation, distention. Denies: diarrhea, bowel incontinence, melena , nausea, bloody stool, vomiting. Genitourinary: Reports: no symptoms. Musculoskeletal: Reports: gout. Denies: joint pain, joint swelling, muscle pain, muscle stiffness. Objective Last 24 Hrs of Vital Signs/I&O Vital Signs Date Time Temp Pulse Resp B/P Pulse O2 O2 Flow FiO2 Ox Delivery Rate 10/05 0734 98.2 65 18 138/74 93 Room Air 10/05 0000 Room Air 10/04 2330 97.9 64 20 170/88 98 Room Air 10/04 1417 97.6 70 20 158/76 95 Intake & Output 10/05 1600 10/05 0800 10/05 0000 Intake Total 650 Output Total 251 500 800 Balance -251 150 -800 Intake, IV 650 Number 1 Bowel Movements Output, Stool 1 Output, Urine 250 500 800 Physical Exam General Appearance: Alert, Oriented X3, Cooperative Skin: No Significant Lesion HEENT: Atraumatic, PERRLA, Mucous Membr. moist/pink Neck: Supple Cardiovascular: Regular Rate, Normal S1, Normal S2, No Murmurs Lungs: Normal Air Movement Abdomen: and has some tenderness to palpation in lower quadrants of abdomen. No rebound. No guarding. No rigidity. Neurological: gait unstable. Extremities: No Clubbing, No Cyanosis, No Edema Vascular: Pulses Symmetrical Current Medications: Current Medications Sig/Magnus Start time Last Medication Dose Route Stop Time Status Admin Acetaminophen 325 MG Q6P PRN 09/29 2315 AC 10/02 PO 1406 Al Hydroxide/Mg 30 ML Q4-6 PRN PRN 10/02 1115 AC 10/03 Hydroxide PO 2145 Albuterol Sulfate 2 PUF Q6PRN PRN 09/30 1115 AC INH Budesonide/ 2 PUF BID 09/30 1112 AC 10/05 Formoterol Fumarate INH 0915 Ceftriaxone Sodium 1,000 MG DAILY@1400 10/03 1454 AC 10/04 IV 1438 Colchicine 600 MCG DAILY 09/30 1329 AC 10/05 PO 0916 Dextrose/Sodium 1,000 ML Q13H 10/03 1330 AC 10/04 Chloride IV 2030 Enoxaparin Sodium 40 MG DAILY 09/30 1000 AC 10/05 SC 0917 Famotidine 20 MG AT BEDTIME 09/30 2200 AC 10/04 PO 2028 Folic Acid 1 MG DAILY 09/30 1000 AC 10/05 PO 0916 Gabapentin 300 MG DAILY NEEDED PRN 09/29 2130 AC 10/01 PO 1135 Lorazepam 0.5 MG QAM 09/30 1000 AC 10/05 PO 10/07 0959 0916 Metronidazole 500 MG Q8H 10/03 0000 AC 10/05 N/A 1 UNIT IV 0915 Morphine Sulfate 1 MG Q6-PRN PRN 10/03 1330 AC 10/04 IV 0530 Ondansetron HCl 4 MG Q6P PRN 10/02 0845 AC 10/02 IV 0848 Oxycodone/ 1 TAB Q6P PRN 09/29 2315 AC 10/05 Acetaminophen PO 0916 Polyethylene Glycol 17 GM DAILY 10/01 1101 AC 10/04 PO 0836 Prednisone 10 MG BID 10/02 1000 AC 10/05 PO 0916 Senna/Docusate Sodium 2 TAB DAILY 09/30 1000 AC 10/05 PO 0916 Last 24 Hrs of Lab/Venancio Results Last 24 Hrs of Labs/Mics: Laboratory Tests 10/05/16 0722: Anion Gap 9, Estimated GFR > 60, BUN/Creatinine Ratio 20.0, CBC w Diff NO MAN DIFF REQ, RBC 4.04 L, MCV 92.8, MCH 30.8, RDW 14.9 H, MPV 8.5, Gran % 83.0 H, Lymphocytes % 7.5 L, Monocytes % 8.7, Eosinophils % 0.7, Basophils % 0.1, Absolute Granulocytes 8.9 H, Absolute Lymphocytes 0.8 L, Absolute Monocytes 0.9 H, Absolute Eosinophils 0.1, Absolute Basophils 0, PUBS MCHC 33.2 Assessment/Plan Assessment: This is an 80-year-old female past medical history significant for gout on prednisone and recent administration of intra-articular steroids, osteo-and rheumatoid arthritis on methotrexate, spinal stenosis, asthma, GERD, who comes in with chief complaint of right ankle pain, s/p mechanical fall. Patient was dx with gout and was admitted to Gen Med floor. Admission is complicated by a new episode of diverticulitis. Assessment and plan: Gout exacerbation: * Con't 10mg Prednisone per rheum * Cont' colchicine * Continue physical therapy * Going to [facility] Abdominal pain: CT scan on 10/02/2012 confirmed mild diverticulitis. This is patient's fourth episode of diverticulitis. The last episode was about 5 years ago. Patient is currently Regular diet, on IV ceftriaxone and IV Flagyl; note she previously got one day of Cipro instead of Ceftraixone. Afebrile. Pain rated 7/10 currently. Her leukocytosis has resolved to 10.8 this AM down from max of 16.3. * Bowel regimen * Zofran when necessary * Cont IV abx--> Convert to PO Augmentin * Advance to clear liquid diet this AM. * Pain control with Tylenol and Percocet Right calf tenderness: RESOLVED. Doppler ultrasound to rule out DVT negative on 09/30/2016 Status post mechanical fall: RESOLVED. No loss of consciousness, dizziness or other complaints. CT head ordered was unremarkable for any acute intracranial pathology/bleed. Will continue home medications including gabapentin, lorazepam, folic acid, ranitidine(converted to famotidine as this medication is not available in our pharmacy). Patient takes her methotrexate every . DVT prophylaxis at all times. Patient is full code. Problem List: 1. Acute diverticulitis 2. Fall 3. Gout attack Pain Ratin Pain Location: l. abdomen Pain Goal: Remain pain free Pain Plan: current reg Tomorrow's Labs & Rationales: none VEDA SERRATO 10/05/16 1305: Attending MD Review Statement Attending Statement Attending MD Statement: examined this patient, discuss w/resident/PA/ASSEMBLY MECHANIC, agreed w/resident/PA/ASSEMBLY MECHANIC, discussed with family, reviewed EMR data (avail), discussed with nursing, discussed with case mgmt, reviewed images Attending Assessment/Plan: ASSESSMENT 1. abdominal pain LLQ 2/2 acute diverticulitis. 2. Constipation 3. acute gouty arthritic pain on steroids 4. Pain control 5. h/o diverticultiis in past 6. RA on methotrexate 7. Acid reflux disease/GERD. 8. Leukocytosis improved. Plan - Increased Prednisone per rheumatology recommendations. - Started Colchicine 0.6mg daily - CT with oral contrast evidence of diverticulitis, bowel rest, advance diet as tolertaed, abx i/v change to PO at discharge, pain control. - added maalox for prn acid reflux. - Continue home medications - rhematology and orthopedics consulted during this admission. - PT eval for d/c recommendations. possible [facility] - referral to GI at discharge o/p colonsocpy in 4-6 weeks. - f/u PCP and rheum as o/p. - anticipate d/c today.
[2016-10-05] MEDS ORDERED: ACIDOPHILUS1 EACH PO (12:01)
[2016-10-05 14:27] VITALS: BP 140/72
[2016-10-05 14:56] VITALS: BP 140/72
== END 2016-10-05 15:15 | DRG 554 ==
LOC: ENRESERVDT → ENRESERVTM → ERH 16:05 → ENPENDDIS 20:25 → DELPENDDIS 20:25 → ERHI 20:25 → 2NA 20:25
PROVIDERS: Internal Medicine Nephrology; Nurse Practitioner Family; Student in an Organized Health Care Education/Training Program; ADMIT Student in an Organized Health Care Education/Training Program
DX: M10.9 Gout, unspecified (principal); K57.92 Diverticulitis of intestine, part unspecified, without perforation or abscess without bleeding; M06.9 Rheumatoid arthritis, unspecified; J45.909 Unspecified asthma, uncomplicated; K21.9 Gastro-esophageal reflux disease without esophagitis; F32.9 Major depressive disorder, single episode, unspecified; F41.9 Anxiety disorder, unspecified
CPT/HCPCS: 2NASP; 36415; 71100-LT; 73610-RT; 74176; 81003; 82436; 87040; 87804; 87804-59; 93005; 93010; 93970; 97110-GO; 97116-GO; 97161-GP; 97530-GO; J0696; J0744; J1650; J2405; J3101; J3490; J7042; J7060; J7512

== ENCOUNTER 2017-10-06 11:32 | Inpatient (IN) | payer OTHER, MEDICARE ==
[~2017-10-06] VITALS: Ht 152.4 cm; Wt 92.6 kg
[~2017-10-06 11:32] MED LIST changes: +ACIDOPHILUS1 EACH PO; +ADVAIR 250-501 EACH INH; +ALIGN10.5 MG PO; +ATIVAN0.5 M1 PO; +AUGMENTIN 875-1 EACH PO; +BENZONATATE100 M1 PO; +CENTRUM SILVER1 EAC3 PO; +CHERATUSSIN AC118 M1 PO; +COLCHICINE0.6 M2 PO; +CYCLOBENZAPRINE10 M1 PO; +FLECTOR1 EACH TOP; +FOLIC ACID1 M1 PO; +GABAPENTIN300 M2 PO; +LIDODERM1 EACH TOP; +MAGNESIUM400 MG PO; +METHOTREXATE2.5 M2 PO; +MIRALAX119 GM PO; +PERCOCET 5-3251 EACH PO; +PREDNISONE10 M2 PO; +PREDNISONE5 M1 PO; +PROAIR HFA8.5 GM INH; +RANITIDINE HCL150 MG PO; +TYLENOL325 M1 PO; +VITAMIN D31000 UNI2 PO
--- NOTE | 2017-10-06 11:49 | ED MVC/FALL/TRAUMA COMPLAINT ---
History of Present Illness General Chief Complaint: Fall Stated Complaint: FALL/LFT PELVIC PAIN/HEAD LAC Source: patient, family, old records Exam Limitations: no limitations Vital Signs & Intake/Output Vital Signs & Intake/Output Vital Signs Date Time Temp Pulse Resp B/P B/P Pulse O2 O2 Flow FiO2 Mean Ox Delivery Rate 10/06 1136 98.0 70 18 160/74 96 Room Air Allergies Coded Allergies: lactase (LACTOSE INTOLERANT 09/29/16) Reconcile Medications Acetaminophen 500 MG TABLET 2 TAB PO PRN PAIN (Reported) Albuterol Sulfate (Proair Hfa) 90 MCG HFA.AER.AD 2 PUF INH PRN ASTHMA ( Reported) Bifidobacterium Infantis (Align) (Unknown Strength) TAB.CHEW 1 TAB PO DAILY SUPPLEMENT (Reported) Cholecalciferol (Vitamin D3) 1,000 UNIT TABLET 0.5 TAB PO DAILY VITAMIN SUPPORT (Reported) Fluticasone/Salmeterol (Advair 250-50 Diskus) 250 MCG-50 MCG/DOSE BLST.W.DEV 1 PUF INH BID ASTHMA (Reported) Folic Acid 1 MG TABLET 1 TAB PO DAILY SUPPLEMENT (Reported) Lidocaine (Lidoderm) 5 % ADH..PATCH 1 PAT TOP PRN PAIN (Reported) may wear up to 12 hours Lorazepam (Ativan) 0.5 MG TABLET 1 TAB PO BID ANXIETY (Reported) Magnesium Oxide (Magnesium) 400 MG TABLET 1 TAB PO DAILY VITAMIN SUPPORT ( Reported) Methotrexate 2.5 MG TABLET 2 TAB PO QTHURS RA (Reported) Multivit-Min/FA/Lycopen/Lutein (Centrum Silver Tablet) 0.4 MG-300 MCG-250 MCG TABLET 1 TAB PO DAILY SUPPLEMENT (Reported) Polyethylene Glycol 3350 (Miralax) 17 GRAM/DOSE POWDER 1 PAC PO DAILY constipation Prednisone 5 MG TABLET 1 TAB PO DAILY STEROID (Reported) Ranitidine (Ranitidine HCl) 150 MG TABLET 1 TAB PO BID GI (Reported) Tramadol HCl 50 MG TABLET 1 TAB PO BID PRN PAIN (Reported) Triage Note: REPORTS MECHANICAL FALL WITH + STRIKE TO THE LEFT ASPECT OF THE FOREHEAD. NO BLOOD THINNERS PER PT. ALSO REPORTS LEFT GROIN PAIN THAT WORSENS UPON STANDING UP. Triage Nurses Notes Reviewed? yes Onset: Abrupt Duration: hour(s): (1), constant Timing: recent history Severity: moderate Severity Numbers: 8 Injuries/Fall Location: head, pelvis Method of Injury: fall Loss of Consciousness: no loss of consciousness Modifying Factors: Worsens With: movement, palpation. Associated Symptoms: DENIES HPI: 81-year-old female history of RA on prednisone presents to the ER with her daughter for evaluation after she had a mechanical fall while cooking just prior to arrival striking the left side of her head and landing on her left hip. The patient states there was no loss of consciousness. The patient was able to get up afterwards hours had difficulty weightbearing on her left leg secondary to pain. She denies any arm injury, vision changes neck or back pain no arm right, left knee or ankle pain. No numbness or tingling. The pain in her hip is localized to her left groin. She is not on any blood thinners. There is no prodromal dizziness light tenderness prior to the fall. (Edison Oconnor) Past History Travel History Traveled to [place] past 21 day No Medical History Any Pertinent Medical History? see below for history Neurological: NONE EENT: NONE Cardiovascular: NONE Respiratory: asthma Gastrointestinal: diverticulitis, GERD Hepatic: NONE Renal: NONE Musculoskeletal: osteoarthritis, rheumatoid arthritis, spinal stenosis Psychiatric: anxiety, depression Endocrine: GOUT Blood Disorders: NONE Cancer(s): SKIN CANCER History of MRSA: No History of VRE: No History of CDIFF: No Influenza Vaccine: 03/25/17 Surgical History Surgical History: appendectomy, knee replacement Psychosocial History Who do you live with Patient/Self Services at Home None What is your primary language Citizen Of [place] Tobacco Use: Never used Family History Hx Contributory? No (Edison Oconnor) Review of Systems Review of Systems Constitutional: Reports: see HPI. Comments Review of systems: See HPI, All other systems negative. Constitutional, no chills no fever, no malaise HEENT: no sore throat no congestion, no ear pain Cardiovascular: No chest pain Skin: no rashes, no change in skin Respiratory: No dyspnea no cough no sputum GI: No nausea no vomiting, no diarrhea, no bloating/constipation : No dysuria Muscle skeletal:see hpi Neurologic: , no headache Heme/endocrine: No bruising no bleeding Immunology: No lymphadenopathy (Edison Oconnor) Physical Exam Physical Exam General Appearance: well developed/nourished, alert, awake Comments: Well-developed well-nourished person in no acute distress HEENT: Normal EENT exam; PERRL, EOMI, no nystagmus. 1 cm skin TEAR noted to the left frontal scalp no active bleeding the rest of the scalp is nontender atraumatic. moist mucous membranes. Neck: Supple, nontender, normal range of motion without pain or tenderness Back: Nontender, Full range of motion Cardiovascular: Regular rate and rhythms no murmurs rub Respiratory: Chest nontender.There were no bony deformities, no asymmetry. No respiratory distress. Patient speaking in full complete sentences. Breath sounds clear to auscultation bilaterally: NO W/R/R Abdomen: Soft, nontender nondistended, no appreciable organomegaly. Normal bowel sounds. No rebound/guarding, Shoulder: Atraumatic/Stable. FROM . Elbow: Atraumatic/stable. FROM. No laxity Upper arm/Forearm: Atraumatic. Nontender. No edema, 5 out of 5 dietary assistant strength noted to bilateral upper extremities Hand/Wrist: Atraumatic/stable. Skin intact. FROM Pulses: Normal/equal radial pulses bilaterally. Brisk cap refill Hip/Pelvis: Tender to palpation over the left lateral hip there is no obvious deformity no shortening or external rotation noted Knee: Atraumatic/stable. FROM of the right knee, range of motion unable to be assessed in the left knee secondary to pain in the hip. No joint swelling, no effusion. No laxity. Negative bushra/anterior drawer test. Leg: Atraumatic. Nontender. No edema, 5 out of 5 strength in the lower extremity, normal dorsiflexion of great toe bilaterally, gross sensation is intact, patellar tendon reflex 2+ bilaterally. Ankle/Foot: Atraumatic/stable. Skin intact. FROM. No swelling, no effusion. No laxity on exam Pulses: Normal/equal DP/PT pulses bilaterally. Brisk cap refill Neuro: Alert oriented x3, motor sensory normal, cranial nerves II through XII grossly intact. There were no obvious focal neurologic abnormalities. Skin: No appreciable rash on exposed skin, skin is warm and dry. Psych: Mood and affect is normal, memory and judgment is normal. Core Measures ACS in differential dx? No CVA/TIA Diagnosis No Sepsis Present: No Sepsis Focused Exam Completed? No (Raffi LING,Edison) Progress Differential Diagnosis: abd injury, C/T/L spine injury, ext injury, ICH, pelvis injury, spinal cord injury Diagnostic Imaging: Viewed by Me: CT Scan. Discussed w/RAD: CT Scan. Radiology Impression: PATIENT: SRINIVASAN WAYNE PRESENT AGE: 81 PATIENT ACCOUNT NO: [id number] : 35 LOCATION: [facility] ORDERING PHYSICIAN: Edison LING SERVICE DATE: 10/06/17 EXAM TYPE: CAT - CT HEAD WO IV CONTRAST EXAMINATION: CT HEAD WITHOUT CONTRAST CLINICAL INFORMATION: History of fall, trauma to the head. Suspected intracranial hemorrhage. COMPARISON: CT of the head done on 09/30/2016. TECHNIQUE: Contiguous axial imaging was performed from the skull base to vertex without intravenous administration of contrast. DLP: 618.07 mGy-cm FINDINGS: There is no evidence of acute intracranial hemorrhage or territorial infarction. No abnormal mass effect or midline shift is seen. Dowling to white matter differentiation is well preserved. No extra-axial fluid collections are identified. The ventricles are normal in size. There is no abnormal attenuation within the brain parenchyma. The osseous structures and soft tissues are normal. The mastoid air cells and visualized portions of the paranasal sinuses are well aerated. IMPRESSION: No acute intracranial pathology. No significant change since 09/30/2016. DICTATED BY: Alon Sparrow MD DATE/TIME DICTATED:10/06/171240 RENTAL COUNTER CLERK: BINH DATE/TIME TRANSCRIBED:10/06/171240 CONFIDENTIAL, DO NOT COPY WITHOUT APPROPRIATE AUTHORIZATION. <Electronically signed in Other Vendor System> SIGNED BY: Alon Sparrow MD 10/06/17 1249, PATIENT: SRINIVASAN WAYNE PRESENT AGE: 81 PATIENT ACCOUNT NO: [id number] : 35 LOCATION: [facility] ORDERING PHYSICIAN: Edison LING SERVICE DATE : 10/06/17 EXAM TYPE: CAT - CT PELVIS WO IV CONTRAST EXAMINATION: CT PELVIS WITHOUT CONTRAST CLINICAL INFORMATION: History of fall, left pelvic pain, suspected fracture. COMPARISON: None TECHNIQUE: Helical scanning was performed with submillimeter collimation through the pelvis. Sagittal and coronal multiplanar 2-D reconstructions were obtained. DLP: 347.72 mGy-cm FINDINGS: Minimally displaced subtle fracture is present involving left superior and inferior pubic rami around the symphysis pubis. The remainder of the visualized bones of the pelvis appear intact. Minimal soft tissue hematoma is noted around the fracture site. There is no significant intrapelvic hematoma visualized. There is no free fluid present within the pelvis. Moderate diffuse osteopenia is noted. The right femoral neck appear deformed without evidence of any cortical disruption, may represent old healed fracture. There is an oval-shaped well- corticated bony fragment identified along the inferior medial part of the neck of the right femur likely represents old posttraumatic change, calcified loose body. The left hip including the left proximal femur appear unremarkable. Incidental note is made of [id number] degenerative osteoarthrosis of both hips (right greater than left). Significant facet joint arthritic changes are noted within the visualized lower lumbosacral spine. Subtle, grade 1 anterolisthesis of L5 over S1 is noted. Review of the visualized soft tissues of the lower abdomen and pelvis is remarkable for a prominent soft tissue opacity seen at right mid abdomen, consistent with the inferior pole of the right kidney. The bowel loops are decompressed. The urinary bladder is decompressed. There is no free fluid and/or free air present. IMPRESSION: 1. Moderate diffuse osteopenia of all the visualized bones. 2. Subtle minimally displaced fractures are noted involving the proximal part of left superior and inferior pubic rami around the symphysis pubis. 3. The right femoral neck appear deformed, most consistent with old healed fracture. 4. Jayk-ko-mxpiegzk osteoarthrosis of both hips (right greater than left). 5. Significant facet joint arthritic changes at lower lumbar spine and subtle, grade 1 anterolisthesis of L5 over S1. DICTATED BY: Alon Sparrow MD DATE/TIME DICTATED:10/06/171245 RENTAL COUNTER CLERK: BINH DATE/TIME TRANSCRIBED:10/06/171245 CONFIDENTIAL, DO NOT COPY WITHOUT APPROPRIATE AUTHORIZATION. <Electronically signed in Other Vendor System> SIGNED BY: Alon Sparrow MD 10/06/17 1348, PATIENT: SRINIVASAN WAYNE PRESENT AGE: 81 PATIENT ACCOUNT NO: [id number] : 35 LOCATION: [facility] ORDERING PHYSICIAN: Edison LING SERVICE DATE : 10/06/17 EXAM TYPE: RAD - XRY-HIP 2-3 VIEWS, RIGHT EXAMINATION: XR HIP, RIGHT CLINICAL INFORMATION: Fall. Rule out fracture. COMPARISON: Selected images CT pelvis 10/06/2017. TECHNIQUE: AP pelvis and AP and lateral views obtained of the right hip. FINDINGS: Moderate axial narrowing of the right hip joint with collar osteophyte around the femoral head and moderate lateral acetabular osteophyte formation. Associated varus angulation of the proximal right femur. No acute fracture or acute dislocation is seen in the right hip. The subtle left pubic bone fractures are not well visualized with conventional radiography. No additional fractures are seen. There are also moderately advanced degenerative changes in the left hip. IMPRESSION: Bilateral hip arthritis, right worse than left with no evidence of acute hip fracture. DICTATED BY: Deshawn Hammond MD DATE /TIME DICTATED:10/06/171510 RENTAL COUNTER CLERK:BINH DATE/TIME TRANSCRIBED: 10/06/171510 CONFIDENTIAL, DO NOT COPY WITHOUT APPROPRIATE AUTHORIZATION. < Electronically signed in Other Vendor System> SIGNED BY: Deshawn Hammond MD 10/06/17 151 Initial ED EKG: normal intervals, normal p-waves, normal QRS complex, normal sinus rhythm Prior EKG: unchanged (Edison Oconnor) Plan of Care: Orders Procedure Date/time Status CBC WITHOUT DIFFERENTIAL 10/07 06 Active BASIC ELECTROLYTES PLUS BUN&CR 10/07 06 Active Regular Diet 10/06 D Active Pathway - chart 10/06 1542 Active House Staff 10/06 1542 Active Patient Data 10/06 1523 Active Misc Message 10/06 1445 Active ED Holding Orders 10/06 1445 Active Admit to inpatient 10/06 1445 Active Vital Signs 10/06 1445 Active Code Status 10/06 1445 Active [place], Insertion/Removal/Asses 10/06 1410 Active CULTURE,URINE 10/06 1410 Active COMPREHENSIVE METABOLIC PANEL 10/06 1410 Complete CBC WITHOUT DIFFERENTIAL 10/06 1410 Complete EKG 10/06 1410 Active Intake & Output 10/06 1203 Active TRC EVALUATION (GEN) 10/06 UNK Active VTE Mechanical Prophylaxis 10/06 UNK Active MISTAKE 10/06 UNK Active Current Medications Sig/Magnus Start time Last Medication Dose Stop Time Status Admin Enoxaparin Sodium 40 MG DAILY 10/07 09 AC (Lovenox) Polyethylene Glycol 17 GM DAILY 10/07 0900 AC (Miralax) Prednisone 5 MG DAILY 10/07 09 AC Famotidine 20 MG BID 10/06 2100 AC (Pepcid) Acetaminophen 650 MG Q4P PRN 10/06 1545 AC (Tylenol) Lidocaine 1 PAT DAILY NEEDED PRN 10/06 154 AC (Lidoderm) Morphine Sulfate 2 MG Q6P PRN 10/06 1545 AC (Morphine) Tramadol HCl 50 MG Q4 PRN 10/06 1545 AC (Ultram) Laboratory Tests 10/06/17 1532: Anion Gap 9, Estimated GFR > 60, BUN/Creatinine Ratio 16.3, Glucose 95, Calcium 9.7, Total Bilirubin 0.6, AST 19, ALT 23, Alkaline Phosphatase 70, Total Protein 6.4, Albumin 3.9, Globulin 2.5, Albumin/Globulin Ratio 1.6 10/06/17 1428: CBC w Diff MAN DIFF ORDERED, RBC 4.17 L, MCV 91.8, MCH 31.0, MCHC 33.8, RDW 15.4 H, MPV 8.9, Gran % 85.8 H, Lymphocytes % 7.6 L, Monocytes % 6.1, Eosinophils % 0.5, Basophils % 0, Absolute Granulocytes 12.8 H, Absolute Lymphocytes 1.1 L, Absolute Monocytes 0.9 H, Absolute Eosinophils 0.1, Absolute Basophils 0, Platelet Estimate ADEQUATE, Anisocytosis 1+ Microbiology 10/06 1430 URINE ROUT: Urine Culture - RECD Patient medicated with Tylenol CAT scans ordered. Case discussed with Dr. Sheppard Discussed with the patient and her daughter her CAT scan of the head results. The skin tear was thoroughly cleaned with normal saline Betadine, Steri-Strips applied by az pending CAT scan of the pelvis results Discussed with the patient and her daughter her CAT scan of the pelvis results, need for admission physical therapy consult probable rehabilitation she is declining anything for pain at this time, cased/w dr sheppard who eval the pt and agrees case d/w ricky will admit (Edison Oconnor) (Valarie SEPULVEDA,Evan Wilkinson) Departure Departure Time of Disposition: 1434 Disposition: STILL A PATIENT Condition: Stable Clinical Impression Primary Impression: Pubic ramus fracture Referrals: María Elena SEPULVEDA,Otto Cuellar (PCP/Family) Departure Forms: Customer Survey General Discharge Information Admission Note Spoke With: Musa Luque MD Documentation of Exam: Documentation of any treatments & extenuating circumstances including Concerns Regarding Discharge (functional status, medication knowledge or non-compliance, living conditions, etc.) that warrant an admission rather than observation: Orthopedic consult PT consult patient will most likely require short-term rehabilitation placement IV pain control nonweightbearing at this time she is a fall risk. (Raffi LING,Edison) PA/FIELD INSTRUCTOR Co-Sign Statement Statement: ED Attending supervision documentation- [X] I saw and evaluated the patient. I have also reviewed all the pertinent lab results and diagnostic results. I agree with the findings and the plan of care as documented in the PA's/FIELD INSTRUCTOR's documentation. Patient presents for evaluation of injury sustained status post fall. Physical examination reveals pelvis tenderness. [] I have reviewed the ED Record and agree with the PA's/FIELD INSTRUCTOR's documentation. [] Additions or exceptions (if any) to the PAs/FIELD INSTRUCTOR's note and plan are summarized below: [] (Valarie SEPULVEDA,Evan Wilkinson)
--- NOTE | 2017-10-06 12:49 | CT SCAN REPORT ---
EXAMINATION: CT HEAD WITHOUT CONTRAST CLINICAL INFORMATION: History of fall, trauma to the head. Suspected intracranial hemorrhage. COMPARISON: CT of the head done on 09/30/2016. TECHNIQUE: Contiguous axial imaging was performed from the skull base to vertex without intravenous administration of contrast. DLP: 618.07 mGy-cm FINDINGS: There is no evidence of acute intracranial hemorrhage or territorial infarction. No abnormal mass effect or midline shift is seen. Dowling to white matter differentiation is well preserved. No extra-axial fluid collections are identified. The ventricles are normal in size. There is no abnormal attenuation within the brain parenchyma. The osseous structures and soft tissues are normal. The mastoid air cells and visualized portions of the paranasal sinuses are well aerated. IMPRESSION: No acute intracranial pathology. No significant change since 09/30/2016.
--- NOTE | 2017-10-06 13:48 | CT SCAN REPORT ---
EXAMINATION: CT PELVIS WITHOUT CONTRAST CLINICAL INFORMATION: History of fall, left pelvic pain, suspected fracture. COMPARISON: None TECHNIQUE: Helical scanning was performed with submillimeter collimation through the pelvis. Sagittal and coronal multiplanar 2-D reconstructions were obtained. DLP: 347.72 mGy-cm FINDINGS: Minimally displaced subtle fracture is present involving left superior and inferior pubic rami around the symphysis pubis. The remainder of the visualized bones of the pelvis appear intact. Minimal soft tissue hematoma is noted around the fracture site. There is no significant intrapelvic hematoma visualized. There is no free fluid present within the pelvis. Moderate diffuse osteopenia is noted. The right femoral neck appear deformed without evidence of any cortical disruption, may represent old healed fracture. There is an oval-shaped well-corticated bony fragment identified along the inferior medial part of the neck of the right femur likely represents old posttraumatic change, calcified loose body. The left hip including the left proximal femur appear unremarkable. Incidental note is made of [id number] degenerative osteoarthrosis of both hips (right greater than left). Significant facet joint arthritic changes are noted within the visualized lower lumbosacral spine. Subtle, grade 1 anterolisthesis of L5 over S1 is noted. Review of the visualized soft tissues of the lower abdomen and pelvis is remarkable for a prominent soft tissue opacity seen at right mid abdomen, consistent with the inferior pole of the right kidney. The bowel loops are decompressed. The urinary bladder is decompressed. There is no free fluid and/or free air present. IMPRESSION: 1. Moderate diffuse osteopenia of all the visualized bones. 2. Subtle minimally displaced fractures are noted involving the proximal part of left superior and inferior pubic rami around the symphysis pubis. 3. The right femoral neck appear deformed, most consistent with old healed fracture. 4. Ycwj-[id number]-ykzkkjni osteoarthrosis of both hips (right greater than left). 5. Significant facet joint arthritic changes at lower lumbar spine and subtle, grade 1 anterolisthesis of L5 over S1.
[2017-10-06 14:39] LABS: ABSOLUTE BASOPHIL COUNT 0 /CUMM (0.0-0.2); ABSOLUTE EOSINOPHIL COUNT 0.1 /CUMM (0.0-0.7); ABSOLUTE GRANULOCYTE CT 12.8 /CUMM (1.4-6.5); ABSOLUTE LYMPH COUNT 1.1 /CUMM (1.2-3.4); ABSOLUTE MONOCYTE COUNT 0.9 /CUMM (0.10-0.60); BASOPHIL % 0 % (0.0-2.0); EOSINOPHIL % 0.5 % (0-5); GRANULOCYTE % 85.8 % (42.2-75.2); HEMATOCRIT 38.3 % (37-47); MEAN CORPUSCULAR HGB CONC 33.8 G/DL (33.0-37.0); MEAN CORPUSCULAR VOLUME 91.8 FL (81.0-99.0); MEAN PLATELET VOLUME 8.9 FL (7.4-10.4); PLATELET COUNT 232 /CUMM (130-400); RBC DISTRIBUTION WIDTH 15.4 % (11.5-14.5); RED BLOOD CELL CT 4.17 /CUMM (4.20-5.40); WHITE BLOOD CELL COUNT 14.9 /CUMM (4.8-10.8)
--- NOTE | 2017-10-06 15:18 | RADIOLOGY REPORT ---
EXAMINATION: XR HIP, RIGHT CLINICAL INFORMATION: Fall. Rule out fracture. COMPARISON: Selected images CT pelvis 10/06/2017. TECHNIQUE: AP pelvis and AP and lateral views obtained of the right hip. FINDINGS: Moderate axial narrowing of the right hip joint with collar osteophyte around the femoral head and moderate lateral acetabular osteophyte formation. Associated varus angulation of the proximal right femur. No acute fracture or acute dislocation is seen in the right hip. The subtle left pubic bone fractures are not well visualized with conventional radiography. No additional fractures are seen. There are also moderately advanced degenerative changes in the left hip. IMPRESSION: Bilateral hip arthritis, right worse than left with no evidence of acute hip fracture.
[2017-10-06] MEDS ORDERED: ACETAMINOPHEN500 M4 PO (15:22)
[2017-10-06] MEDS ORDERED: LIDODERM1 EACH TOP (15:24)
[2017-10-06] MEDS ORDERED: FOLIC ACID1 M1 PO (15:25)
[2017-10-06] MEDS ORDERED: TRAMADOL HCL50 M1 PO (15:25)
--- NOTE | 2017-10-06 15:28 | History & Physical ---
Silver SEPULVEDA,[facility] 10/06/17 1528: General Information and HPI MD Statement: I have seen and personally examined SRINIVASAN WAYNE and documented this H&P. The patient is a 81 year old F who presented with a patient stated chief complaint of fall. Source of Information: patient Exam Limitations: no limitations History of Present Illness: 81 yo pleasent lady with a past medical history of of RA and on chroninc 5 mg prednisone presents to the ER with her daughter for evaluation after a mechanical fall. Pt was reported to have tripped while cooking at the kitchen. Pt claims her shoes must have tripped her when she was ambulating. She was reported to have struck the left side of her head on the furniture while landing on her left hip during the fall. Patient was able to get her phone out and call her children who showed up less than 3 minutes after being called. No report of syncope, seizure like activity, postictal confusion, urinary/bowel incontinence, or any focal neurological deficits such as facial droop or dysarthia. The patient was able to get up after the fall but began to having difficulty weightbearing on her left leg secondary to pain. At baseline, patient lives by herself with her children close by and is independent with her ADLS. She ambulates with a cane and sometimes with a rolling walker. Later during the history taking, patient confessed to her daughter that she might have had two more mechanical falls in the past month. She denies any dizziness, focal neurological deficits, chest pain/palpitation, recent illness, sick contacts, fever/chills, muscle weakness, recent trauma, abdominal pain, dysuria or diarrhea. She reports adequately hydrating herslef on a daily basis. Allergies/Medications Allergies: Coded Allergies: lactase (LACTOSE INTOLERANT 09/29/16) Home Med list Acetaminophen 500 MG TABLET 2 TAB PO PRN PAIN (Reported) Albuterol Sulfate (Proair Hfa) 90 MCG HFA.AER.AD 2 PUF INH PRN ASTHMA ( Reported) Bifidobacterium Infantis (Align) (Unknown Strength) TAB.CHEW 1 TAB PO DAILY SUPPLEMENT (Reported) Cholecalciferol (Vitamin D3) 1,000 UNIT TABLET 0.5 TAB PO DAILY VITAMIN SUPPORT (Reported) Fluticasone/Salmeterol (Advair 250-50 Diskus) 250 MCG-50 MCG/DOSE BLST.W.DEV 1 PUF INH BID ASTHMA (Reported) Folic Acid 1 MG TABLET 1 TAB PO DAILY SUPPLEMENT (Reported) Lidocaine (Lidoderm) 5 % ADH..PATCH 1 PAT TOP PRN PAIN (Reported) may wear up to 12 hours Lorazepam (Ativan) 0.5 MG TABLET 1 TAB PO BID ANXIETY (Reported) Magnesium Oxide (Magnesium) 400 MG TABLET 1 TAB PO DAILY VITAMIN SUPPORT ( Reported) Methotrexate 2.5 MG TABLET 2 TAB PO QTHURS RA (Reported) Multivit-Min/FA/Lycopen/Lutein (Centrum Silver Tablet) 0.4 MG-300 MCG-250 MCG TABLET 1 TAB PO DAILY SUPPLEMENT (Reported) Polyethylene Glycol 3350 (Miralax) 17 GRAM/DOSE POWDER 1 PAC PO DAILY constipation Prednisone 5 MG TABLET 1 TAB PO DAILY STEROID (Reported) Ranitidine (Ranitidine HCl) 150 MG TABLET 1 TAB PO BID GI (Reported) Tramadol HCl 50 MG TABLET 1 TAB PO BID PRN PAIN (Reported) Past History Travel History Traveled to [place] past 21 day No Medical History Neurological: NONE EENT: NONE Cardiovascular: NONE Respiratory: asthma Gastrointestinal: diverticulitis, GERD Hepatic: NONE Renal: NONE Musculoskeletal: osteoarthritis, rheumatoid arthritis, spinal stenosis Psychiatric: anxiety, depression Endocrine: GOUT Blood Disorders: NONE Cancer(s): SKIN CANCER History of MRSA: No History of VRE: No History of CDIFF: No Influenza Vaccine: 03/25/17 Surgical History Surgical History: appendectomy, knee replacement Past Family/Social History Psychosocial History Services at Home: None Functional Ability ADLs Independent: dressing, eating, toileting, bathing. Ambulation: independent Review of Systems Review of Systems Constitutional: Reports: see HPI. EENTM: Reports: no symptoms. Cardiovascular: Reports: no symptoms. Respiratory: Reports: no symptoms. GI: Reports: no symptoms. Genitourinary: Reports: no symptoms. Musculoskeletal: Reports: no symptoms. Skin: Reports: erythema. Neurological/Psychological: Reports: no symptoms. Hematologic/Endocrine: Reports: bruising. Immunologic/Allergic: Reports: no symptoms. All Other Systems: Reviewed and Negative Exam & Diagnostic Data Last 24 Hrs of Vital Signs/I&O Vital Signs Date Time Temp Pulse Resp B/P B/P Pulse O2 O2 Flow FiO2 Mean Ox Delivery Rate 10/06 1921 98.6 89 18 144/79 97 Room Air 04/15 1824 98.4 84 16 117/56 95 Room Air 10/06 1136 98.0 70 18 160/74 96 Room Air Intake & Output 10/06 1600 10/06 0800 10/06 0000 Intake Total Output Total 200 Balance -200 Output, Urine 200 Patient 51.71 kg Weight Weight Reported by Patient Measurement Method Physical Exam General Appearance Alert, Oriented X3, Cooperative Skin sterile strip intact covering left frontal side of the head Skin Temp/Moisture Exam: Warm/Dry Sepsis Skin Exam (color): Normal for Ethnicity HEENT traumatic, with bruise on the left side of the head. Neck Supple, No JVD Lymphatic Cervical nl Cardiovascular Regular Rate, Normal S1, Normal S2 Lungs Clear to Auscultation, Normal Air Movement Abdomen Normal Bowel Sounds, Soft, No Tenderness Neurological Normal Speech, Normal Tone Extremities no hematoma or significant swelling noted on the affected left hip, ROM however is dercreased due to pain. Vascular Normal Pulses Last 24 Hrs of Labs/Venancio: Laboratory Tests 10/06/17 1532: Anion Gap 9, Estimated GFR > 60, BUN/Creatinine Ratio 16.3, Glucose 95, Calcium 9.7, Total Bilirubin 0.6, AST 19, ALT 23, Alkaline Phosphatase 70, Total Protein 6.4, Albumin 3.9, Globulin 2.5, Albumin/Globulin Ratio 1.6 10/06/17 1428: CBC w Diff MAN DIFF ORDERED, RBC 4.17 L, MCV 91.8, MCH 31.0, MCHC 33.8, RDW 15.4 H, MPV 8.9, Gran % 85.8 H, Lymphocytes % 7.6 L, Monocytes % 6.1, Eosinophils % 0.5, Basophils % 0, Absolute Granulocytes 12.8 H, Absolute Lymphocytes 1.1 L, Absolute Monocytes 0.9 H, Absolute Eosinophils 0.1, Absolute Basophils 0, Platelet Estimate ADEQUATE, Anisocytosis 1+ Microbiology 10/06 1430 URINE ROUT: Urine Culture - RECD Diagnostic Data Other Results SERVICE DATE: 10/06/17-120 EXAM TYPE: CAT - CT PELVIS WO IV CONTRAST EXAMINATION: CT PELVIS WITHOUT CONTRAST CLINICAL INFORMATION: History of fall, left pelvic pain, suspected fracture. COMPARISON: None TECHNIQUE: Helical scanning was performed with submillimeter collimation through the pelvis. Sagittal and coronal multiplanar 2-D reconstructions were obtained. DLP: 347.72 mGy-cm FINDINGS: Minimally displaced subtle fracture is present involving left superior and inferior pubic rami around the symphysis pubis. The remainder of the visualized bones of the pelvis appear intact. Minimal soft tissue hematoma is noted around the fracture site. There is no significant intrapelvic hematoma visualized. There is no free fluid present within the pelvis. Moderate diffuse osteopenia is noted. The right femoral neck appear deformed without evidence of any cortical disruption, may represent old healed fracture. There is an oval-shaped well-corticated bony fragment identified along the inferior medial part of the neck of the right femur likely represents old posttraumatic change, calcified loose body. The left hip including the left proximal femur appear unremarkable. Incidental note is made of [id number] degenerative osteoarthrosis of both hips (right greater than left). Significant facet joint arthritic changes are noted within the visualized lower lumbosacral spine. Subtle, grade 1 anterolisthesis of L5 over S1 is noted. Review of the visualized soft tissues of the lower abdomen and pelvis is remarkable for a prominent soft tissue opacity seen at right mid abdomen, consistent with the inferior pole of the right kidney. The bowel loops are decompressed. The urinary bladder is decompressed. There is no free fluid and/or free air present. IMPRESSION: 1. Moderate diffuse osteopenia of all the visualized bones. 2. Subtle minimally displaced fractures are noted involving the proximal part of left superior and inferior pubic rami around the symphysis pubis. 3. The right femoral neck appear deformed, most consistent with old healed fracture. 4. [id number] osteoarthrosis of both hips (right greater than left). 5. Significant facet joint arthritic changes at lower lumbar spine and subtle, grade 1 anterolisthesis of L5 over S1. Assessment/Plan Assessment: 81 yo pleasent lady on chronic prednisone 5mg dose for RA, and on no anticoagualtion or antiplatelet therapy, presents after a mechanical fall which involved striking her head on the floor while landing on her right hip. No seizure like activity, syncope, or focal neurological deficit suggestibe of stroke was noticed. No intracranial acute bleeding, but a pubis rami fracture was evident on HiP Xray. Impression * Mechanical Fall. * Closed displaced left pelvic fracture of the superior and inferior pubic rami. Secondary to the fall. Patient has risk factors predisposing her to increase risk of fractures (age and daily chronic prednisone use, albeit low physiological doses). * History of chronic disease: Rheumatoid Arthritis. Plan Admit to general medicine floor Adequate pain management with Tramadol and morphine for severe pain due to fracture PT evaluation tomorrow morning Will follow orthopedic recommendations Continue prednisone 5 mg Miralax 17gm daily DVT: Enoxaparin As Ranked By This Provider Problem List: 1. Fall 2. Pubic ramus fracture Core Measures/Misc (03/10) Acute Coronary Syndrome ACS Diagnosis: No Congestive Heart Failure Congestive Heart Failure Diagnosis No Cerebrovascular Accident CVA/TIA Diagnosis: No VTE (View Protocol) VTE Risk Factors Acute Medical Illness No Mechanical VTE Prophylaxis d/t N/A MechProphylax Ordered No VTE Pharm Prophylaxis d/t NA PharmProphylax ordered Sepsis (View protocol) Sepsis Present: No Musa Luque MD 10/06/17 1537: Attending MD Review Statement Attending Statement Attending MD Statement: examined this patient, discuss w/resident/PA/BALANCE TRUER, agreed w/resident/PA/BALANCE TRUER, reviewed EMR data (avail) Attending Assessment/Plan: 81F PMH asthma, GERD, rheumatoid arthritis on chronic Prednisone, depression, skin cancer and gout presenting with mechanical fall. Was in kitchen cooking, lost her balance, fell over, landing on left side and hitting the left side of her head. No symptoms prior to fall. Did not lose consciousness and was not confused after. Was able to get up afterward. Left groin pain on standing and with ambulation. No other complaints. Neuro exam normal. CT pelvis shows minimally displaced fractures are noted involving the proximal part of left superior and inferior pubic rami around the symphysis pubis. CT head negative. 1. Fall 2. Closed displaced left pelvic fracture of the superior and inferior pubic rami Plan - Admit to general medicine - Pain control - PT eval - Continue home medications - DVT PPx
[2017-10-06 19:22] VITALS: BP 144/79
[2017-10-07 06:53] VITALS: BP 140/84
--- NOTE | 2017-10-07 07:33 | PN- Housestaff ---
Nella SEPULVEDA,Christopher 10/07/17 0732: Subjective Follow-up For: Left Pelvic Fracture s/p Mechanical Fall History of Rheumatoid Arthritis Subjective: Patient was seen and examined today. Reports continued left hip pain. Patient reports constipation. She received miralax today. Reports that she normally has a bowel movement everyday. Patient denies abdominal pain, n/v, chest pain, shortness of breath, fever/chills. Patient currently has a miguel in place. No acute events overnight. Review of Systems Constitutional: Reports: see HPI. Objective Last 24 Hrs of Vital Signs/I&O Vital Signs Date Time Temp Pulse Resp B/P B/P Pulse O2 O2 Flow FiO2 Mean Ox Delivery Rate 10/07 1354 98.3 67 16 108/64 95 Room Air 10/07 0653 97.6 63 20 140/84 96 10/06 2136 Room Air Room Air 10/06 1922 98.6 89 18 144/79 97 Room Air 10/06 1824 98.4 84 16 117/56 95 Room Air Intake & Output 10/07 1600 10/07 0800 10/07 0000 Intake Total 800 240 820 Output Total 234 178 1460 Balance -100 -360 -430 Intake, IV 20 Intake, Oral 800 240 800 Number 0 Bowel Movements Output, Urine [phone] Patient 204 lb 114 lb Weight Weight Bed scale Reported by Patient Measurement Method Physical Exam General Appearance: Alert, Oriented X3, Cooperative, No Acute Distress Other Physical Findings: HEENT traumatic, with bruise on the left side of the head. Neck Supple, No JVD Lymphatic Cervical nl Cardiovascular Regular Rate, Normal S1, Normal S2 Lungs Clear to Auscultation, Normal Air Movement Abdomen Normal Bowel Sounds, Soft, No Tenderness Neurological Normal Speech, Normal Tone Extremities no hematoma or significant swelling noted on the affected left hip, ROM decreased due to pain Vascular Normal Pulses Current Medications: Current Medications Sig/Magnus Start time Last Medication Dose Route Stop Time Status Admin Acetaminophen 650 MG .STK-MED ONE 10/07 0643 DC PO 10/07 0644 Acetaminophen 650 MG Q4P PRN 10/06 1545 AC 10/07 PO 0645 Albuterol Sulfate 2 PUF Q4P PRN 10/06 2145 AC INH Enoxaparin Sodium 40 MG DAILY 10/07 0900 AC 10/07 SC 0801 Famotidine 20 MG BID 10/06 2100 AC 10/07 PO 0800 Lidocaine 1 PAT DAILY NEEDED PRN 10/06 1545 AC 10/07 EXT 0759 Morphine Sulfate 2 MG Q6P PRN 10/06 1545 AC IV Polyethylene Glycol 17 GM DAILY 10/07 0900 AC 10/07 PO 0759 Prednisone 5 MG DAILY 10/07 0900 AC 10/07 PO 0800 Tramadol HCl 50 MG Q4 PRN 10/06 1545 AC 10/07 PO 1656 Last 24 Hrs of Lab/Venancio Results Last 24 Hrs of Labs/Mics: Laboratory Tests 10/07/17 0751: Anion Gap 10, Estimated GFR > 60, BUN/Creatinine Ratio 20.0, CBC w Diff NO MAN DIFF REQ, RBC 4.10 L, MCV 91.3, MCH 30.8, MCHC 33.7, RDW 15.4 H, MPV 9.1, Gran % 69.0, Lymphocytes % 19.6 L, Monocytes % 9.6 H, Eosinophils % 1.4, Basophils % 0.4, Absolute Granulocytes 6.4, Absolute Lymphocytes 1.8, Absolute Monocytes 0.9 H, Absolute Eosinophils 0.1, Absolute Basophils 0 Lines/Diet/Fluids Catheters/Tubes: miguel Assessment/Plan Assessment: 81 yo pleasent lady on chronic prednisone 5mg dose for RA, and on no anticoagualtion or antiplatelet therapy, presents after a mechanical fall which involved striking her head on the floor while landing on her right hip. No seizure like activity, syncope, or focal neurological deficit suggestibe of stroke was noticed. No intracranial acute bleeding, but a pubis rami fracture was evident on HiP Xray. Problems: Close displaced left pelvic fracture of the superior and inferior pubic rami s/p mechanical fall History of chronic disease: Rheumatoid Arthritis on chronic prednisone Patient continues to have left hip pain. Vital signs stable, H/H stable, leukocytosis resolved. Patient seen by ortho today and will be managed conservatively. Patient is weight bearing as tolerated. Patient will require PT evaluation and likely STR. Per ortho: Follow up x-rays AP pelvis in 6 weeks Call for to make an appointment: [phone] Plan Admit to general medicine floor Continue pain control with Tramadol and morphine for severe pain due to fracture Ortho consulted. Patient is WBAT with walker. PT evaluation Continue prednisone 5 mg Miralax 17gm daily DVT: Enoxaparin Diet: Regular diet Code: Full code Dispo: will likely need STR pending PT evaluation Will need follow up x-rays and ortho follow up in 6 weeks Problem List: 1. Pubic ramus fracture Pain Ratin Pain Location: left hip Pain Goal: Pain 7 or less Pain Plan: tramadol tylenol Tomorrow's Labs & Rationales: none Lexus SEPULVEDA,Norbertphamjessika 10/07/17 1253: Attending MD Review Statement Attending Statement Attending MD Statement: examined this patient, discuss w/resident/PA/BILL SORTER, agreed w/resident/PA/BILL SORTER, reviewed EMR data (avail), discussed with nursing, discussed with case mgmt, amended to note Attending Assessment/Plan: Patient seen and examined. Lying comfortably in bed and not in any acute distress. She appears quite comfortable. No issues overnight reported by nursing staff. She offers no complaints today. She reports her pelvic pain is controlled with use of tramadol. We will continue current pain regimen. Awaiting formal evaluation by the orthopedic service for recommendations regarding physical therapy. She will likely require short-term rehabilitation before being transitioned home. Repeat CBC and chemistry in a.m. if there is a change in her clinical status.
[2017-10-07 08:30] LABS: ABSOLUTE BASOPHIL COUNT 0 /CUMM (0.0-0.2); ABSOLUTE EOSINOPHIL COUNT 0.1 /CUMM (0.0-0.7); ABSOLUTE GRANULOCYTE CT 6.4 /CUMM (1.4-6.5); ABSOLUTE LYMPH COUNT 1.8 /CUMM (1.2-3.4); ABSOLUTE MONOCYTE COUNT 0.9 /CUMM (0.10-0.60); BASOPHIL % 0.4 % (0.0-2.0); EOSINOPHIL % 1.4 % (0-5); HEMATOCRIT 37.5 % (37-47); MEAN CORPUSCULAR HGB 30.8 PG (27.0-31.0); MEAN CORPUSCULAR HGB CONC 33.7 G/DL (33.0-37.0); MEAN CORPUSCULAR VOLUME 91.3 FL (81.0-99.0); MEAN PLATELET VOLUME 9.1 FL (7.4-10.4); PLATELET COUNT 206 /CUMM (130-400); RBC DISTRIBUTION WIDTH 15.4 % (11.5-14.5); WHITE BLOOD CELL COUNT 9.3 /CUMM (4.8-10.8)
[2017-10-07 13:54] VITALS: BP 108/64
--- NOTE | 2017-10-07 15:56 | Cons- Orthopedic ---
General Information and HPI Consulting Request Date of Consult: 10/07/17 Requested By: Patricia Alberts MD History of Present Illness: 81 yr old female with left hip pain s/p fall. went to the ER CT scan shows small non-displaced superior and inferior pubic rami fractures. states has extreme pain with WB. has history of RA and under treatment with prednisone. rates pain as a 8 with WB but well controlled in bed with ultram. Allergies/Medications Allergies: Coded Allergies: lactase (LACTOSE INTOLERANT 09/29/16) Home Med List: Acetaminophen 500 MG TABLET 2 TAB PO PRN PAIN (Reported) Albuterol Sulfate (Proair Hfa) 90 MCG HFA.AER.AD 2 PUF INH PRN ASTHMA ( Reported) Bifidobacterium Infantis (Align) (Unknown Strength) TAB.CHEW 1 TAB PO DAILY SUPPLEMENT (Reported) Cholecalciferol (Vitamin D3) 1,000 UNIT TABLET 0.5 TAB PO DAILY VITAMIN SUPPORT (Reported) Fluticasone/Salmeterol (Advair 250-50 Diskus) 250 MCG-50 MCG/DOSE BLST.W.DEV 1 PUF INH BID ASTHMA (Reported) Folic Acid 1 MG TABLET 1 TAB PO DAILY SUPPLEMENT (Reported) Lidocaine (Lidoderm) 5 % ADH..PATCH 1 PAT TOP PRN PAIN (Reported) may wear up to 12 hours Lorazepam (Ativan) 0.5 MG TABLET 1 TAB PO BID ANXIETY (Reported) Magnesium Oxide (Magnesium) 400 MG TABLET 1 TAB PO DAILY VITAMIN SUPPORT ( Reported) Methotrexate 2.5 MG TABLET 2 TAB PO QTHURS RA (Reported) Multivit-Min/FA/Lycopen/Lutein (Centrum Silver Tablet) 0.4 MG-300 MCG-250 MCG TABLET 1 TAB PO DAILY SUPPLEMENT (Reported) Polyethylene Glycol 3350 (Miralax) 17 GRAM/DOSE POWDER 1 PAC PO DAILY constipation Prednisone 5 MG TABLET 1 TAB PO DAILY STEROID (Reported) Ranitidine (Ranitidine HCl) 150 MG TABLET 1 TAB PO BID GI (Reported) Tramadol HCl 50 MG TABLET 1 TAB PO BID PRN PAIN (Reported) Past History Medical History Blood Transfusion Hx: Yes Neurological: NONE EENT: NONE Cardiovascular: NONE Respiratory: asthma Gastrointestinal: diverticulitis, GERD Hepatic: NONE Renal: NONE Musculoskeletal: osteoarthritis, rheumatoid arthritis, spinal stenosis Psychiatric: anxiety, depression Endocrine: GOUT Blood Disorders: NONE Cancer(s): SKIN CANCER Surgical History Pertinent Surgical History: appendectomy, knee replacement Psychosocial History Services at Home: None Smoking Status: Never Smoked Functional Ability ADLs Independent: dressing, eating, toileting, bathing. Ambulation: independent Exam & Diagnostic Data Vital Signs and I&O Vital Signs Date Time Temp Pulse Resp B/P B/P Pulse O2 O2 Flow FiO2 Mean Ox Delivery Rate 10/07 1354 98.3 67 16 108/64 95 Room Air 10/07 0653 97.6 63 20 140/84 96 10/06 2136 Room Air Room Air 10/06 1922 98.6 89 18 144/79 97 Room Air 10/06 1824 98.4 84 16 117/56 95 Room Air Intake & Output 10/07 1600 10/07 0800 10/07 0000 10/06 1600 10/06 0800 10/06 0000 Intake Total 800 240 820 Output Total 537 633 7239 200 Balance -100 -360 -430 -200 Intake, IV 20 Intake, Oral 800 240 800 Number 0 Bowel Movements Output, Urine 063 788 3165 200 Patient 204 lb 114 lb 114 lb Weight Weight Bed scale Reported by Patient Reported by Patient Measurement Method Physical Exam: tender with external/internal rotation of left hip. limited ROM of left hip. left lower extremity n/v intact. tender in left inguinal region. 5/5 strength left foot with dorsi/plantar flexion. CT scan shows a non-displaced inferior and superior pubic rami fractures. There is also degenerative changes of left hip. Assessment/Plan Assessment/Plan left inferior/superior pubic rami fractures -wbat with walker -pain meds for pain control -f/u x-rays AP pelvis in 6 weeks -recommend STR -call for appt in 6 weeks [phone] Consult Acknowledgment - Thank you for your consult request.
[2017-10-07 21:42] VITALS: BP 118/68
[2017-10-08 06:02] VITALS: BP 112/72
--- NOTE | 2017-10-08 07:16 | PN- Housestaff ---
Charles SEPULVEDA,Marisa 10/08/17 0716: Subjective Follow-up For: Pubic fracture Subjective: Seen and examined. Resting comfortably. Complaining of some pelvic pain. Pain controlled by medication. Denies fevers and chills, was having nausea in the morning resolved with Zofran. Review of Systems Constitutional: Reports: see HPI. Objective Last 24 Hrs of Vital Signs/I&O Vital Signs Date Time Temp Pulse Resp B/P B/P Pulse O2 O2 Flow FiO2 Mean Ox Delivery Rate 10/08 0849 Room Air Room Air 10/08 0602 98.1 65 20 112/72 94 Room Air 10/07 2142 98.4 59 16 118/68 96 Room Air 10/07 1354 98.3 67 16 108/64 95 Room Air Intake & Output 10/08 1600 10/08 0800 10/08 0000 Intake Total 120 120 Output Total 650 1175 Balance -530 -1055 Intake, Oral 120 120 Output, Urine 650 1175 Physical Exam General Appearance: Alert, Oriented X3, Cooperative Cardiovascular: Normal S1, Normal S2 Lungs: Clear to Auscultation, Normal Air Movement Extremities: pelvic tenderness Assessment/Plan Assessment: 81 yo pleasent lady on chronic prednisone 5mg dose for RA, and on no anticoagualtion or antiplatelet therapy, presents after a mechanical fall which involved striking her head on the floor while landing on her right hip. No seizure like activity, syncope, or focal neurological deficit suggestibe of stroke was noticed. No intracranial acute bleeding, but a pubis rami fracture was evident on HiP Xray. Problems: Close displaced left pelvic fracture of the superior & inferior pubic rami s/p mechanical fall History of chronic disease: Rheumatoid Arthritis on chronic prednisone Patient continues to have left hip pain. Vital signs stable, H/H stable, leukocytosis resolved. Patient seen by ortho toda and will be managed conservatively. Patient is weight bearing as tolerated. Patient will require PT evaluation and likely STR after evaluation by physical therapy. Meanwhile we are going to control her pain with Tylenol, tramadol and morphine. It is okay to ambulate with walker. Weightbearing as tolerated She will require a follow- up x-ray AP pelvis in 6 weeks to ensure resolution of the fracture along with follow-up with orthopedics. The patient has not had a bowel movement since presentation will be started on a bowel regimen today. DVT: Enoxaparin/Diet: Regular diet /Code: Full code Problem List: 1. Pubic ramus fracture Pain Ratin Pain Location: pelvis Pain Goal: Pain 4 or less Pain Plan: prn Tomorrow's Labs & Rationales: none Norbert Alberts MDritikachandler 10/08/17 1147: Attending MD Review Statement Attending Statement Attending MD Statement: examined this patient, discuss w/resident/PA/CENTRAL MELT SPECIALIST, agreed w/resident/PA/CENTRAL MELT SPECIALIST, reviewed EMR data (avail), discussed with nursing, discussed with case mgmt, amended to note Attending Assessment/Plan: Patient seen and examined. Resting comfortably and not in any acute distress. No issues overnight reported by nursing staff. She reports some pelvic pain controlled on current regimen. She does report some constipation. On examination she has some tenderness in the pelvic region with no rebound or guarding. She was evaluated by the orthopedic service yesterday and recommendations noted. She will be evaluated by the physical therapy service today. Given her decreased mobility following the fracture she will require placement in a alf facility for short-term rehabilitation before being transitioned home. Patient is in agreement with this plan. Anticipate discharge tomorrow once a bed becomes available
[2017-10-08 14:04] VITALS: BP 102/60
--- NOTE | 2017-10-08 16:01 | Discharge Summary ---
Visit Information Visit Dates Admission Date: 10/06/17 Discharge Date: 10/11/17 Hospital Course Course Attending Physician: Patricia Alberts MD Primary Care Physician: Otto Ring MD Hospital Course: 81 yo lady with PMH asthma, GERD, rheumatoid arthritis on chronic Prednisone, depression, skin cancer and gout presenting with mechanical fall. Was in kitchen cooking, lost her balance, fell over, landing on left side and hitting the left side of her head. No symptoms prior to fall. Did not lose consciousness and was not confused after. Was able to get up afterward. Left groin pain on standing and with ambulation. No report of focal neurological deficits such as facial droop or dysarthia, no seizure like activities either. Vital Signs Date Time Temp Pulse Resp B/P B/P Pulse O2 O2 Flow FiO2 Mean Ox Delivery Rate 10/06 1136 98.0 70 18 160/74 96 Room Air Physical exam: Mild bruise on the left side of the head. Negative for any neurological deficits.There was decreased range of motion on the affected left hip area, no hematoma or obvious swelling was noted.The remainder of the exam was benign. CT heads was negative for any intracranial bleed. CT pelvis shows minimally displaced fractures are noted involving the proximal part of left superior and inferior pubic rami around the symphysis pubis. CT head negative. Pt was then admitted to general medicine floor for mechanical criss and pubis ramus fracture. Orthopedics was consulted and recommended conservative management through pain management and PT. Patient was seen by PT who recommended STR. On day 4 of admission, patient's Urine analysis was suggestive of a UTI, and her culture grew lynch sensitive Ecoli. She wass started on ceftriaxone for 2 days while in the hospitall. She remained afebrile and was stgable on day of discharge. She was discharge with 5 day abx course of cephalexin to complete a 7 day tx for UTI. Allergies: Coded Allergies: lactase (LACTOSE INTOLERANT 09/29/16) Disposition Summary Disposition Principal Diagnosis: PUBIS FRACTURE Additional Diagnosis: UTI MECHANICAL FALL Discharge Disposition: SNF Discharge Instructions General Discharge Information Code Status: Full Code Patient's Diet: REGULAR Patient's Activity: TOLERATED Follow-Up Instructions/Appts: WEIGHT BEARING TOLERATED F/U WITH ORTHOPEDICS 1 WEEK AFTER DISCHARGE Medications at Discharge Discharge Medications: Stop taking the following medications: Tramadol HCl (Tramadol HCl) 50 MG TABLET ORAL TWICE DAILY as needed for PAIN Qty = 60 Continue taking these medications: Ranitidine (Ranitidine HCl) 150 MG TABLET 1 Tablet ORAL TWICE DAILY Qty = 60 Comments: NOT GIVEN IN HOSPITAL Bifidobacterium Infantis (Align) 10.5 MG (10 MILLION CELL) TAB.CHEW 1 Tablet ORAL DAILY Comments: NOT GIVEN IN HOSPITAL Multivit-Min/FA/Lycopen/Lutein (Centrum Silver Tablet) 0.4 MG-300 MCG-250 MCG TABLET 1 Tablet ORAL DAILY Comments: NOT GIVEN IN HOSPITAL Cholecalciferol (Vitamin D3) 1,000 UNIT TABLET 0.5 Tablet ORAL DAILY Comments: NOT GIVEN IN HOSPITAL Albuterol Sulfate (Proair Hfa) 90 MCG HFA.AER.AD 2 Puff Inhale through mouth as needed for ASTHMA Days = 50 Comments: NOT GIVEN IN HOSPITAL Fluticasone/Salmeterol (Advair 250-50 Diskus) 250 MCG-50 MCG/DOSE BLST.W.DEV 1 Puff Inhale through mouth TWICE DAILY Days = 90 Comments: NOT GIVEN IN HOSPITAL Lorazepam (Ativan) 0.5 MG TABLET 1 Tablet ORAL TWICE DAILY Comments: NOT GIVEN IN HOSPITAL Methotrexate (Methotrexate) 2.5 MG TABLET 2 Tablet ORAL EVERY SATURDAY Comments: NOT GIVEN IN HOSPITAL Magnesium Oxide (Magnesium) 400 MG TABLET 1 Tablet ORAL DAILY Comments: NOT GIVEN IN HOSPITAL Prednisone (Prednisone) 5 MG TABLET 1 Tablet ORAL DAILY Comments: Last Taken: 10/11/17 Time: 8:30 AM Polyethylene Glycol 3350 (Miralax) 17 GRAM/DOSE POWDER 1 Packet ORAL DAILY Qty = 30 Comments: Last Taken: 10/11/17 Time: 8:30 AM Lidocaine (Lidoderm) 5 % ADH..PATCH 1 Patch On the skin as needed for PAIN Instructions: may wear up to 12 hours Comments: Last Taken: 10/10/17 Time: 8:30 AM Folic Acid (Folic Acid) 1 MG TABLET 1 Tablet ORAL DAILY Comments: NOT GIVEN IN HOSPITAL Start taking the following new medications: Tramadol HCl (Tramadol HCl) 50 MG TABLET 1 Tablet ORAL Every 4 hours as needed for PAIN SCALE 5-10 Qty = 20 No Refills Comments: Last Taken: 10/11/17 Time: 10:00 AM Cephalexin (Keflex) 500 MG CAPSULE 1 Capsule ORAL TWICE DAILY Qty = 10 No Refills Comments: NOT GIVEN IN HOSPTIAL The following medications have been changed: Old: Acetaminophen (Acetaminophen) 500 MG TABLET 2 Tablet ORAL as needed for PAIN New: Acetaminophen (Acetaminophen) 500 MG TABLET 1 Tablet ORAL EVERY 8 HOURS as needed for PAIN SCALE 1-5 Qty = 30 Comments: Last Taken: 10/11/17 Time: 8:30 AM Copies To: María Elena SEPULVEDA,Otto Cuellar Attending Review Statement Documenting Attending: Patricia Alberts MD Other Findings: Discharged in stable condition.
[2017-10-08 21:45] VITALS: BP 112/60
[2017-10-09 06:21] VITALS: BP 112/62
--- NOTE | 2017-10-09 07:34 | Patient Discharge Instructions ---
Discharge Instructions General Discharge Information You were seen/treated for: Pelvic fracture Special Instructions: Please follow-up with a primary care doctor 1 week after discharge Please follow-up with doctor after discharge within 4-6 weeks. You are going to need repeat imaging done in 4-6 weeks to see the resolution of fracture. Diet Continue normal diet: Yes Activity Full Activity/No Limits: Yes Acute Coronary Syndrome Inclusion Criteria At DC or during hospital stay patient has or had the following: ACS DIAGNOSIS No Discharge Core Measures Meds if any: Prescribed or Continued at Discharge Meds if any: NOT Prescribed or Continued at Discharge Congestive Heart Failure Inclusion Criteria At DC or during hospital stay patient has or had the following: CHF DIAGNOSIS No Discharge Core Measures Meds if any: Prescribed or Continued at Discharge Meds if any: NOT Prescribed or Continued at Discharge Cerebrovascular accident Inclusion Criteria At DC or during hospital stay patient has or had the following: CVA/TIA Diagnosis No Discharge Core Measures Meds if any: Prescribed or Continued at Discharge Meds if any: NOT Prescribed or Continued at Discharge Venous thromboembolism Inclusion Criteria VTE Diagnosis No VTE Type NONE VTE Confirmed by (Test) NONE Discharge Core Measures - Per Current guidelines, there needs to be overlap - treatment for the first 5 days of Warfarin therapy. - If discharged on Warfarin prior to 5 days of - overlap therapy, the patient will need to be - assessed for post discharge needs including - *Post discharge parental anticoagulation - *Warfarin and/or parental anticoagulation education - *Follow up date to check INR post discharge At least 5 days overlap therapy as Inpatient No Meds if any: Prescribed or Continued at Discharge Note: Overlap Therapy is Warfarin and Anticoagulant Meds if any: NOT Prescribed or Continued at Discharge
[2017-10-09] MEDS ORDERED: ALENDRONATE SOD70 M2 PO (09:23)
[2017-10-09] MEDS ORDERED: TRAMADOL HCL50 M1 PO (09:31)
[2017-10-09] MEDS ORDERED: ACETAMINOPHEN500 M4 PO (09:31)
--- NOTE | 2017-10-09 09:53 | PN- Housestaff ---
Charles SEPULVEDA,[facility] 10/09/17 0953: Subjective Follow-up For: Pelvic fracture Subjective: Patient seen and examined. Continues to complain of pain at the fracture site. However today patient was complaining of lower abdominal pain as well. She also did mention that she had an episode of burning with urination after the Sanabria catheter was removed.. Complained of nausea subsided by Zofran today. We are going to do a UA just to rule out urinary tract infection if it is clear patient can be discharged to a short-term rehabilitation. Review of Systems Constitutional: Reports: see HPI. Objective Last 24 Hrs of Vital Signs/I&O Vital Signs Date Time Temp Pulse Resp B/P B/P Pulse O2 O2 Flow FiO2 Mean Ox Delivery Rate 10/09 0621 98.0 64 22 112/62 98 Room Air 10/08 2145 98.3 64 20 112/60 94 Room Air 10/08 1404 98.7 61 20 102/60 94 Room Air Intake & Output 10/09 1600 10/09 0800 10/09 0000 Intake Total 480 Output Total 350 1100 Balance -350 -620 Intake, Oral 480 Number 1 Bowel Movements Output, Urine 350 1100 Physical Exam General Appearance: Alert, Oriented X3, Cooperative Cardiovascular: Normal S1, Normal S2 Lungs: Clear to Auscultation Abdomen: lower abd pain Neurological: Normal Speech Current Medications: Current Medications Sig/Magnus Start time Last Medication Dose Route Stop Time Status Admin Acetaminophen 650 MG .STK-MED ONE 10/08 2214 DC PO 10/08 221 Acetaminophen 650 MG Q4P PRN 10/06 1545 AC 10/09 PO 1018 Albuterol Sulfate 2 PUF Q4P PRN 10/06 2145 AC INH Bisacodyl 10 MG ONCE PRN 10/08 1000 DC 10/08 SC 1402 Docusate Sodium 100 MG BID 10/08 0924 AC 10/09 PO 0814 Enoxaparin Sodium 40 MG DAILY 10/07 0900 AC 10/09 SC 0814 Famotidine 20 MG BID 10/06 2100 AC 10/09 PO 0814 Lidocaine 1 PAT DAILY NEEDED PRN 10/06 1545 AC 10/08 EXT 1050 Morphine Sulfate 2 MG Q6P PRN 10/06 1545 AC IV Ondansetron HCl 4 MG ONCE ONE 10/09 0845 DC 10/09 PO 10/09 0846 0943 Polyethylene Glycol 17 GM DAILY 10/07 0900 AC 10/09 PO 0814 Prednisone 5 MG DAILY 10/07 0900 AC 10/09 PO 0814 Tramadol HCl 50 MG Q4 PRN 10/06 1545 AC 10/09 PO 0831 Last 24 Hrs of Lab/Venancio Results Last 24 Hrs of Labs/Mics: Laboratory Tests 10/09/17 1011: Urine Color YEL, Urine Clarity CLDY H, Urine pH 6.0, Ur Specific Campbell 1.025, Urine Protein TRACE H, Urine Ketones NEG, Urine Nitrite POS H, Urine Bilirubin NEG, Urine Urobilinogen 0.2, Ur Leukocyte Esterase MOD H, Ur Microscopic SEDIMENT EXAMINED, Urine RBC 3-5, Urine WBC 50-75 H, Ur Epithelial Cells FEW, Urine Bacteria MANY H, Urine Hemoglobin MOD H, Urine Glucose NEG Microbiology 10/09 1011 URINE ROUT: Urine Culture - RECD Assessment/Plan Assessment: 81 yo pleasent lady on chronic prednisone 5mg dose for RA, and on no anticoagualtion or antiplatelet therapy, presents after a mechanical fall which involved striking her head on the floor while landing on her right hip. No seizure like activity, syncope, or focal neurological deficit suggestibe of stroke was noticed. No intracranial acute bleeding, but a pubis rami fracture was evident on HiP Xray. Problems: Close displaced left pelvic fracture of the superior & inferior pubic rami s/p mechanical fall History of chronic disease: Rheumatoid Arthritis on chronic prednisone Patient continues to have left hip pain. Vital signs stable, H/H stable, leukocytosis resolved. Patient seen by ortho toda and will be managed conservatively. Patient is weight bearing as tolerated. Patient will require PT evaluation and likely STR after evaluation by physical therapy. Meanwhile we are going to control her pain with Tylenol, tramadol and morphine. It is okay to ambulate with walker. Weightbearing as tolerated She will require a follow- up x-ray AP pelvis in 6 weeks to ensure resolution of the fracture along with follow-up with orthopedics. The patient has not had a bowel movement since presentation was started on a bowel regimen yesterday and had a BM Patient complaining of lower abdominal pain in addition to pain at the fracture site. It was tender to touch. We ordered a urine and urinalysis which was positive for nitrate moderate leukoesterase, 50-75 WBC. Urine culture sent. Monitor fever and WBC curve. She should be treated for uncomplicated UTI with 3 days of abx DVT: Enoxaparin/Diet: Regular diet /Code: Full code Problem List: 1. Pubic ramus fracture Pain Ratin Pain Location: lower abd Pain Goal: Pain 4 or less Pain Plan: prn Tomorrow's Labs & Rationales: conor Alberts MD,Patricia 10/09/17 1357: Attending MD Review Statement Attending Statement Attending MD Statement: examined this patient, discuss w/resident/PA/MERRY GO ROUND OPERATOR, agreed w/resident/PA/MERRY GO ROUND OPERATOR, reviewed EMR data (avail), discussed with nursing, discussed with case mgmt, amended to note Attending Assessment/Plan: Patient seen and examined. No issues overnight reported by nursing staff. This morning she continues to complain of pelvic discomfort. She is now complaining of dysuria. She reports burning sensation when urinating. She was abdominal pain improves with her current pain regimen. On examination she has some fullness in the lower abdomen. Lower abdomen is tender to touch with no rebound or guarding in the suprapubic region on bilateral lower quadrants. She does report voiding appropriately however there is concern for possible urinary retention.Urinalysis was done today and is positive for nitrites and leukoesterase raising concern for possible UTI. She is afebrile. Recommendations: -Check urine cultures. If positive will begin patient on oral antibiotic therapy. -Continue current pain regimen. -Bladder scan to rule out urinary retention. -Bladder scan is negative may consider discharge later on today.
[2017-10-09 14:34] VITALS: BP 110/64
[2017-10-09 20:54] VITALS: BP 98/78
[2017-10-10 06:31] VITALS: BP 110/62
--- NOTE | 2017-10-10 07:22 | PN- Housestaff ---
See Addendum Subjective Follow-up For: Pelvic fracture UTI Subjective: Seen and examined. Resting comfortably. Continues to complain of pelvic pain around fracture site. Since yesterday she has been complaining of lower abdominal pain her UA is positive for nitrates her white count has bumped up to 12 today. We are going to treat her for UTI with ceftriaxone Review of Systems Constitutional: Reports: see HPI. Objective Last 24 Hrs of Vital Signs/I&O Vital Signs Date Time Temp Pulse Resp B/P B/P Pulse O2 O2 Flow FiO2 Mean Ox Delivery Rate 10/10 1113 98.2 62 20 110/62 10/10 0631 98.2 62 20 110/62 93 10/09 2054 98.4 64 18 98/78 93 Room Air 10/09 1434 97.8 62 16 110/64 92 Room Air Intake & Output 10/10 1600 10/10 0800 10/10 0000 Intake Total Output Total 566 354 3556 Balance -200 -850 -1000 Output, Urine 673 147 8074 Physical Exam General Appearance: Alert, Oriented X3 Lungs: Clear to Auscultation Abdomen: lower abd pain Neurological: Normal Speech Assessment/Plan Assessment: 81 yo pleasent lady on chronic prednisone 5mg dose for RA, and on no anticoagualtion or antiplatelet therapy, presents after a mechanical fall which involved striking her head on the floor while landing on her right hip. No seizure like activity, syncope, or focal neurological deficit suggestibe of stroke was noticed. No intracranial acute bleeding, but a pubis rami fracture was evident on HiP Xray. #Close displaced left pelvic fracture of the superior & inferior pubic rami s/p mechanical fall Patient continues to have left hip pain. Vital signs stable, H/H stable. Patient seen by ortho and will be managed conservatively. Patient is weight bearing as tolerated. Patient will require STR after on discharge. Meanwhile we are going to control her pain with Tylenol, tramado It is okay to ambulate with walker. Weightbearing as tolerated She will require a follow-up x-ray AP pelvis in 6 weeks to ensure resolution of the fracture along with follow-up with orthopedics. #UTI Patient has been complaining of lower abdominal pain in addition to pain at the fracture site. It was tender to touch. We ordered urinalysis which was positive for nitrate moderate leukoesterase, 50-75 WBC. Urine culture is growing gram-negative rods greater than 100,000 colonies. Sensitivities are pending. She is afebrile and her white count is up to 12.1.We will treat her for uncomplicated UTI with 3 days of abx. IV ceftriaxone today day 1 #History of chronic disease: Rheumatoid Arthritis on chronic prednisone -Continue home dose DVT: Enoxaparin/Diet: Regular diet /Code: Full code Problem List: 1. Pubic ramus fracture Pain Ratin Pain Location: pelvis, low abd Pain Goal: Pain 4 or less Pain Plan: prn Tomorrow's Labs & Rationales: cbc
[2017-10-10 08:27] LABS: ABSOLUTE BASOPHIL COUNT 0 /CUMM (0.0-0.2); ABSOLUTE EOSINOPHIL COUNT 0.1 /CUMM (0.0-0.7); ABSOLUTE GRANULOCYTE CT 9.5 /CUMM (1.4-6.5); ABSOLUTE LYMPH COUNT 1.8 /CUMM (1.2-3.4); ABSOLUTE MONOCYTE COUNT 1.3 /CUMM (0.10-0.60); BASOPHIL % 0.1 % (0.0-2.0); EOSINOPHIL % 1.1 % (0-5); GRANULOCYTE % 74.8 % (42.2-75.2); HEMATOCRIT 35.7 % (37-47); MEAN CORPUSCULAR HGB 31.1 PG (27.0-31.0); MEAN CORPUSCULAR HGB CONC 34.1 G/DL (33.0-37.0); MEAN CORPUSCULAR VOLUME 91.2 FL (81.0-99.0); MEAN PLATELET VOLUME 9.3 FL (7.4-10.4); PLATELET COUNT 225 /CUMM (130-400); RED BLOOD CELL CT 3.92 /CUMM (4.20-5.40); WHITE BLOOD CELL COUNT 12.7 /CUMM (4.8-10.8)
[2017-10-10 11:13] VITALS: BP 110/62
[2017-10-10 14:17] VITALS: BP 122/70
[2017-10-10 22:04] VITALS: BP 130/60
[2017-10-11 07:09] VITALS: BP 126/62
--- NOTE | 2017-10-11 07:28 | PN- Housestaff ---
See Addendum Subjective Follow-up For: Pelvic Fracture UTI Subjective: Seen and examined. Complaining of pelvic pain especially on movement. Cultures grew Escherichia coli which was pansensitive. Patient is stable to be discharged home on pain regimen tramadol 3 times a day as needed and keflex treated for a total of 7 days for UTI. Review of Systems Constitutional: Reports: see HPI. Objective Last 24 Hrs of Vital Signs/I&O Vital Signs Date Time Temp Pulse Resp B/P B/P Pulse O2 O2 Flow FiO2 Mean Ox Delivery Rate 10/11 0958 98.2 62 20 110/62 10/11 0709 98.1 72 18 126/62 92 10/10 2204 99.2 67 18 130/60 93 Room Air 10/10 1436 Room Air Room Air 10/10 1417 98.2 64 18 122/70 95 Intake & Output 10/11 1600 10/11 0800 10/11 0000 Intake Total 120 800 Output Total 600 900 Balance -480 -100 Intake, Oral 120 800 Number 1 1 Bowel Movements Output, Urine 600 900 Physical Exam General Appearance: Alert, Oriented X3, No Acute Distress Lungs: Clear to Auscultation, Normal Air Movement Neurological: Normal Speech Assessment/Plan Assessment: 81 yo pleasent lady on chronic prednisone 5mg dose for RA, and on no anticoagualtion or antiplatelet therapy, presents after a mechanical fall which involved striking her head on the floor while landing on her right hip. No seizure like activity, syncope, or focal neurological deficit suggestibe of stroke was noticed. No intracranial acute bleeding, but a pubis rami fracture was evident on HiP Xray. #Close displaced left pelvic fracture of the superior & inferior pubic rami s/p mechanical fall Patient continues to have left hip pain. Vital signs stable, H/H stable. Patient seen by ortho and will be managed conservatively. Patient is weight bearing as tolerated. Patient will be discharged to [facility] today. We are controlling her pain with Tylenol, tramadol It is okay to ambulate with walker. Weightbearing as tolerated She will require a follow-up x-ray AP pelvis in 6 weeks to ensure resolution of the fracture along with follow-up with orthopedics. #UTI Patient has been complaining of lower abdominal pain in addition to pain at the fracture site. It was tender to touch. We ordered urinalysis which was positive for nitrate moderate leukoesterase, 50-75 WBC. Urine culture is Escherichia coli which is pansensitive she remains afebrile without white count. She has received 2 doses of IV ceftriaxone and is going to be switched to by mouth Keflex 500 mg twice a day to complete a seven-day course #History of chronic disease: Rheumatoid Arthritis on chronic prednisone -Continue home dose DVT: Enoxaparin/Diet: Regular diet /Code: Full cod Problem List: 1. Pubic ramus fracture Pain Ratin Pain Location: pelvis Pain Goal: Pain 4 or less Pain Plan: prn Tomorrow's Labs & Rationales: rocky
[2017-10-11 07:37] LABS: ABSOLUTE BASOPHIL COUNT 0 /CUMM (0.0-0.2); ABSOLUTE EOSINOPHIL COUNT 0.1 /CUMM (0.0-0.7); ABSOLUTE GRANULOCYTE CT 7.7 /CUMM (1.4-6.5); ABSOLUTE LYMPH COUNT 1.1 /CUMM (1.2-3.4); ABSOLUTE MONOCYTE COUNT 1.2 /CUMM (0.10-0.60); BASOPHIL % 0.4 % (0.0-2.0); EOSINOPHIL % 1.1 % (0-5); GRANULOCYTE % 75.9 % (42.2-75.2); HEMATOCRIT 35.8 % (37-47); MEAN CORPUSCULAR HGB 31.1 PG (27.0-31.0); MEAN CORPUSCULAR HGB CONC 34.1 G/DL (33.0-37.0); MEAN CORPUSCULAR VOLUME 91.2 FL (81.0-99.0); PLATELET COUNT 247 /CUMM (130-400); RBC DISTRIBUTION WIDTH 15.2 % (11.5-14.5); RED BLOOD CELL CT 3.93 /CUMM (4.20-5.40); WHITE BLOOD CELL COUNT 10.1 /CUMM (4.8-10.8)
[2017-10-11 09:58] VITALS: BP 110/62
[2017-10-11] MEDS ORDERED: KEFLEX500 M1 PO (11:09)
== END 2017-10-11 13:15 | DRG 536 ==
LOC: ERH 11:32 → ERHI 14:45 → 2NB 14:45 → ENRESERV 17:58 → ENTRNSPT 18:30 → EDTRNSPTSTS 18:37 → EDTRNSPT 18:39 → 2NB 18:42 → CMPTRNSPT 18:59 → 2NB 10-07 07:56 → ENPENDDIS 10-11 11:27 → 2NB 10-11 13:15
PROVIDERS: Internal Medicine; Physician Assistant Medical; Student in an Organized Health Care Education/Training Program
DX: S32.592A Other specified fracture of left pubis, initial encounter for closed fracture (principal); N39.0 Urinary tract infection, site not specified; M06.9 Rheumatoid arthritis, unspecified; F32.9 Major depressive disorder, single episode, unspecified; F41.9 Anxiety disorder, unspecified; J45.909 Unspecified asthma, uncomplicated; K21.9 Gastro-esophageal reflux disease without esophagitis; B96.89 Other specified bacterial agents as the cause of diseases classified elsewhere; Z79.52 Long term (current) use of systemic steroids; W01.190A Fall on same level from slipping, tripping and stumbling with subsequent striking against furniture, initial encounter; Y93.G3 Activity, cooking and baking; Y92.000 Kitchen of unspecified non-institutional (private) residence as the place of occurrence of the external cause; Z79.51 Long term (current) use of inhaled steroids; M10.9 Gout, unspecified; M19.90 Unspecified osteoarthritis, unspecified site; Z85.828 Personal history of other malignant neoplasm of skin; Z96.659 Presence of unspecified artificial knee joint; B96.20 Unspecified Escherichia coli [E. coli] as the cause of diseases classified elsewhere
CPT/HCPCS: 2NBSP; 36415; 36592; 73502-RT; 81001; 82436; 87086; 93005; 93010; 97116-GO; 97161-GP; 97530-GO; J0696; J1650; J3101; J3490; J7512